=== PATIENT | male | born 1955 | race Caucasian/White ===

== ENCOUNTER → 2016-10-15 | Outpatient (CLI) | payer BC ==
[2016-10-15 17:38] LABS: ALT/SGPT 31 U/L (12-78); BLOOD UREA NITROGEN 16 mg/dl (7-18); BUN/CREATININE RATIO 14.6 (10-20); CALCIUM 9.3 mg/dl (8.5-10.1); CARBON DIOXIDE 26 mmol/L (21-32); CHLORIDE 106 mmol/L (98-107); CHOLESTEROL 199 mg/dl (0-200); GLUCOSE 94 mg/dl (70-99); POTASSIUM 3.7 mmol/L (3.5-5.1); SODIUM 141 mmol/L (136-145); TRIGLYCERIDES 114 mg/dl (0-150); VERY LOW DENSITY LIPOPROT CALC 23 mg/dl
[2016-10-15 17:41] LABS: ALB/GLOB RATIO 1.4 (0.9-2); ALKALINE PHOSPHATASE 69 U/L (45-117); AST/SGOT 21 U/L (15-37); CHOLESTEROL/HDL RATIO 5.5; HDL CHOLESTEROL 36 mg/dl; LDL CHOLESTEROL CALCULATED 140 mg/dl
[2016-10-15 17:58] LABS: RATIO 5.6 mcg/mg (0-30.0)
[2016-10-16 06:33] LABS: ESTIMATED AVERAGE GLUCOSE 128 mg/dl; HA1C FLAG Normal (Normal)
== END | disposition home or self-care (01) ==
LOC: C.LAB1850 15:15
PROVIDERS: ATTEND Physician Assistant
DX: E11.9 Type 2 diabetes mellitus without complications (principal); E78.5 Hyperlipidemia, unspecified

== ENCOUNTER → 2017-05-02 | Outpatient (CLI) | payer BC ==
[2017-05-02 12:31] LABS: ALBUMIN 4.1 gm/dl (3.4-5.0); BLOOD UREA NITROGEN 17 mg/dl (7-18); CALCIUM 9.6 mg/dl (8.5-10.1); CARBON DIOXIDE 26 mmol/L (21-32); CHOLESTEROL 221 mg/dl (0-200); CREATININE 0.94 mg/dl (0.60-1.40); GLUCOSE 98 mg/dl (70-99); POTASSIUM 4.2 mmol/L (3.5-5.1); SODIUM 138 mmol/L (136-145)
[2017-05-02 12:41] LABS: ALKALINE PHOSPHATASE 75 U/L (45-117); ALT/SGPT 28 U/L (12-78); AST/SGOT 17 U/L (15-37); LDL CHOLESTEROL CALCULATED 148 mg/dl; TOTAL PROTEIN 7.3 gm/dl (6.4-8.2)
[2017-05-02 12:57] LABS: HEMOGLOBIN A1C 6.1 % (4.5-5.6)
== END | disposition home or self-care (01) ==
LOC: C.LAB1850 10:36
PROVIDERS: ATTEND Physician Assistant
DX: N52.9 Male erectile dysfunction, unspecified (principal); E11.9 Type 2 diabetes mellitus without complications

== ENCOUNTER 2022-10-04 05:36 | Observation (INO) ==
--- NOTE | 2022-09-27 10:58 | Anesthesiology Consultation ---
Date of Service September 27, 2022 Assessment & Plan (1) Encounter for pre-operative examination: - check BSG am DOS. - spinal cord stimulator. - COVID screening: Per booking prizer on 09/27/2022: Travel screen negative, no known COVID-19 positive contacts or current COVID-19 related symptoms in past 2 weeks. To surgeon's discretion if preop COVID testing is needed. Chart Review Chart Review: Acceptable Risk for Surgery and Patient NOT seen in Pre Admission Testing History Surgery Operation Date: 10/04/22 07:15 Proposed Procedures p TURP (Transurethral Resection Prostate) - Bola Stock MD Height/Weight Height: 5 ft 9 in Weight: 95.254 kg Allergies Allergy/AdvReac Type Severity Reaction Status Date / Time cephalexin [From Keflex] Allergy Unknown Hives Verified 09/27/22 10:13 tetracycline Allergy Unknown HIVES Verified 09/27/22 10:13 lactose AdvReac Unknown DIARRHEA Verified 09/27/22 10:13 Medications Home Medications Medication Instructions Recorded Confirmed Last Taken sildenafil (pulm.hypertension) 20 40 mg PO UD PRN sexual activity 02/20/22 09/27/22 2 Months Ago mg tablet ~06/30/22 atorvastatin 40 mg tablet 40 mg PO HS #90 tabs 06/25/22 09/27/22 08/27/22 semaglutide 1 mg/dose (2 mg/1.5 1 mg subcut WK 08/30/22 09/27/22 Unknown mL) subcutaneous pen injector tamsulosin 0.4 mg capsule (Flomax) 0.4 mg PO QPM #30 caps 09/24/22 09/27/22 Unknown nitrofurantoin 100 mg PO BID 10 days #20 caps 09/26/22 09/27/22 Unknown monohydrate/macrocrystals 100 mg capsule (Macrobid) esomeprazole magnesium 20 mg 20 mg PO Q2D 09/27/22 09/27/22 Unknown capsule,delayed release (Nexium) Past Medical History Medical History (Updated 09/27/22 @ 10:57 by Mariely Garza PA-C) Degenerative disc disease Diabetes mellitus, type 2 NIDDM Erectile dysfunction History of blood transfusion 2005 Hyperlipidemia Hypertension IN PAST, LOST WEIGHT, NO LONGER ISSUE Kidney stones HX > passed on own Lactose intolerance 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 placed 2014 at [facility] for chronic neck pain. battery replaced 2020. pt reports he turns off the day of surgery Past Family History Family History Father Family history of diabetes mellitus Other No family history of adverse response to anesthesia Denies family history of Ovarian cancer Prostate cancer Myocardial infarction Breast cancer Colorectal cancer Past Surgical History Surgical History Fusion of spine 5 CERVICAL FUSION ([facility]) -- ROM limited History of Achilles tendon repair right open debridement 02/18/18 History of appendectomy History of arthroscopy RT KNEE RT SHOULDER History of cardiac cath 2009 (NO STENTS "NORMAL CATH REPORT") History of carpal tunnel surgery of left wrist History of carpal tunnel surgery of right wrist History of colonoscopy History of endoscopic sinus surgery History of laminectomy LUMBAR History of surgery SPINAL CORD STIMULATOR (LOCATED ON RT UPPER CHEST) PT CAN TURN OFF DEVICE (D4P) PT WILL BRING REMOTE DOS S/P insertion of spinal cord stimulator + battery change and also lead changes. S/P left inguinal hernia repair Left Open Inguinal Hernia Repair with Mesh Dr. Baptiste 03/10/2020 Status post trigger finger release right hand 02/18/18 Status post trigger finger release left little finger Status post wrist surgery RT Social History Smoking Status: Current some day smoker tobacco type: cigars Smoking cigarettes per day: OCC CIGAR/ADVISED NPO Do You Dip or Chew Tobacco: No Hx Alcohol Use: Yes Alcohol type: wine and hard liquor alcohol intake frequency: holidays/special occasions only Hx Substance Use: No substance use type: does not use Lab Results Anesthesia Preop Results Results Anesthesia Widget: WBC 7.70 K/ul (4.8-10.8) 09/25/22 Hgb 14.7 g/dl (14.0-18.0) 09/25/22 Hct 43.9 % (42.0-52.0) 09/25/22 Plt 266 K/uL (130-400) 09/25/22 Na 138 mmol/L (136-145) 09/25/22 K 3.9 mmol/L (3.5-5.1) 09/25/22 Cl 105 mmol/L (98-107) 09/25/22 CO2 26 mmol/L (21-32) 09/25/22 BUN 24 mg/dl (6-23) H 09/25/22 Creat 0.98 mg/dl (0.6-1.4) 09/25/22 Glucose Level 128 mg/dl (70-99(Fasting)) H 09/25/22 Urine Color Dark Yellow 08/30/22 Urine Appearance Slightly Cloudy 09/24/22 Urine pH 6.0 (4.5-7.5) 08/30/22 Urine Specific [place] 1.028 (1.000-1.030) 08/30/22 Urine Protein Trace (Negative) H 08/30/22 Urine Glucose (UA) Negative (Negative) 08/30/22 Urine Ketones Trace (Negative) H 08/30/22 Urine Blood Trace (Negative) H 08/30/22 Urine Nitrite Negative (Negative) 08/30/22 Urine Bilirubin Negative (Negative) 08/30/22 Urine Urobilinogen Positive (Negative) H 08/30/22 Urine Leukocyte Esterase 3+ (Negative) H 08/30/22 Urine WBC (Auto) >30 /hpf (0-5) H 08/30/22 Urine RBC (Auto) 0-4 /hpf (0-4) 08/30/22 Urine Hyaline Casts (Auto) 1-5 /lpf (0-5) 08/30/22 Urine Epithelial Cells (Auto) 0-5 /lpf (0-5) 08/30/22 Urine Bacteria (Auto) Negative (Negative) 08/30/22 Testing Electrocardiogram Date: 09/25/22 NSR with frequent consecutive PACs, rate 88 bpm Low voltage QRS Chest X-Ray Date: 09/25/22 No active disease in the chest Other Testing Abdomen pelvis CT 08/30/22 1. No urinary calculi or hydronephrosis. 2. Enlarged prostate with a few hypodense foci within the prostate, as described above. These measure up to 2.4 x 1 cm. These are nonspecific and could represent a heterogeneous prostate gland. However, phlegmon or small developing prostatic abscesses could appear similar. No drainable prostatic fluid collection at this time. 3. No bowel obstruction. No bowel wall thickening.
[~2022-10-04 05:36] MED LIST: PIPERACILLIN IV ONE; TAZOBACTAM IV ONE
[2022-10-04] MEDS ORDERED: LR 15ML/HR IV SCH (06:00)
[2022-10-04] MEDS ORDERED: TAZOBACTAM IV ONE (06:45)
[2022-10-04] MEDS ORDERED: Nursing to Pharmacy Communication SCH (06:45)
[2022-10-04] MEDS ORDERED: PIPERACILLIN IV ONE (06:45)
[2022-10-04] MEDS ORDERED: fentaNYL citrate PF 100 MCG/2 ML VIAL IV PRN (07:03)
[2022-10-04] MEDS ORDERED: ePHEDrine sulfate 50 MG/ML AMP IV PRN (07:03)
[2022-10-04] MEDS ORDERED: PROMETHAZINE HCL 12.5 MG in SODIUM CHLORIDE 0.9% 50 ML IV PRN (07:03)
[2022-10-04] MEDS ORDERED: ATROPINE SULFATE 0.1 MG/ML 10ML SYR IV PRN (07:03)
[2022-10-04] MEDS ORDERED: HYDROmorphone INJ 2 MG/ML SYR/VIAL IV PRN (07:03)
[2022-10-04] MEDS ORDERED: ONDANSETRON INJ 2 MG/ML 2 ML VIAL IV PRN (07:03)
[2022-10-04] MEDS ORDERED: PROPOFOL IV EMULSION 10 MG/ML 20 ML VIAL IV ONE (07:06)
[2022-10-04] MEDS ORDERED: DEXAMETHASONE SOD INJ 4 MG/ML VIAL ONE (07:06)
[2022-10-04] MEDS ORDERED: fentaNYL citrate PF 100 MCG/2 ML VIAL ONE (07:06)
[2022-10-04] MEDS ORDERED: LIDOCAINE 2% 2 ML VIAL/AMP(20MG/ML) INFIL ONE (07:07)
[2022-10-04] MEDS ORDERED: ONDANSETRON INJ 2 MG/ML 2 ML VIAL ONE (07:07)
--- NOTE | 2022-10-04 07:16 | History & Physical Bridge Note ---
Date of Service October 04, 2022 History & Physical Bridge Note I have examined the patient, reviewed the History & Physical and in the interval since the performance of the History & Physical I have noted the following changes of clinical significance: no changes noted
[2022-10-04] MEDS ORDERED: ePHEDrine sulfate 50 MG/ML SYR ONE (08:24)
--- NOTE | 2022-10-04 08:32 | Operative Report ---
PG Post Operative Report Pre & Post Diagnosis Operation Date: 10/04/22 07:15 Pre-Op Diagnosis: Urinary Tract Infection, Acute Prostatitis Post-Op Diagnosis: Urinary Tract Infection, Acute Prostatitis I identified the patient and participated in the time-out.: Yes Procedure Operation Date: 10/04/22 07:15 Actual Procedures p TURP (Transurethral Resection of the Prostate)(Not Applicable) - Bola Stock MD Surgeon Bola Stock MD Shirt Turner none Estimated Blood Loss 5 Findings Consistent with Post-Op Diagnosis Specimens Prostate chips Description of Procedure The patient was identified in the preoperative holding area, appropriate informed consents were reviewed and completed and the patient was transferred to the operative suite. Upon arrival, appropriate antibiotics and anesthesia were administered and the patient was placed in dorsal lithotomy position and prepped and draped in sterile fashion. Umbilicus to pass 26 Romanian resectoscope with 30 degree lens and visual nickel operator peer inspection revealed a healthy-appearing urethra and a moderately enlarged prostate with a high bladder neck and lateral lobe obstruction. The bladder itself was mildly trabeculated with ureteral orifices identified in orthotopic position. There were no tumors or other abnormalities within the bladder. Following my inspection I began resection of the prostate utilizing a loop electrode. I first incised at 5 and 7:00 and then resected the intervening segment of tissue. I carried this dissection from the bladder neck down to the apex of the prostate with care to ensure preservation of the verumontanum. I then resected the rest of the lateral lobes on the right and the left as well as some anterior/apical tissue. I then returned to the posterior portion of the prostate adjacent to the verumontanum and resected through the next layer of tissue extracting a number of prostatic stones. I opened several pockets of area that contain some normal-appearing seminal fluid but no definitive pus. I felt that the resection was adequate at that time and hemostasis was excellent. All chips were irrigated out of the bladder and passed off the table as a specimen. A 22 Romanian Felder catheter was inserted and the case was concluded. There were no complications. I attest to the content of the Intraoperative Record and any orders documented therein. Any exceptions are noted below.
--- NOTE | 2022-10-04 08:53 | Anesthesiology Progress Note ---
Date of Service October 04, 2022 Anesthesia Post Procedure Vital Signs Vital Signs: Temp Pulse Pulse Resp BP BP Pulse Ox 10/04/22 08:45 64 12 130/79 100 10/04/22 08:37 36.4 C L 65 12 129/92 96 10/04/22 06:03 36.6 C 92 H 20 117/78 98 O2 Del Method O2 Flow Rate 10/04/22 08:45 Oxymask 7 10/04/22 08:37 Oxymask 7 10/04/22 06:03 Room Air Transfer of Care Handoff Completed per policy Notes Mental Status: alert / awake / arousable and participated in evaluation Patient Amnestic to Procedure: Yes Nausea / Vomiting: adequately controlled Pain: adequately controlled Airway Patency, RR, SpO2: stable & adequate BP & HR: stable & adequate Hydration State: stable & adequate Anesthetic Complications: no major complications apparent
[2022-10-04] MEDS ORDERED: PHARMACY GLYCEMIC MGMT CONSULT PRN (09:27)
[2022-10-04] MEDS ORDERED: traMADol HCL 50 MG TABLET PO PRN (09:27)
[2022-10-04] MEDS ORDERED: ACETAMINOPHEN 325 MG TAB PO PRN (09:27)
[2022-10-04] MEDS: ALLERGY Noted to ORDERED Medication SCH ×4 (09:34→23:30)
[2022-10-04] MEDS: LACTATED RINGER'S 1,000 ML IV SCH ×2 (09:36→23:06)
[2022-10-04] MEDS ORDERED: PANTOprazole 40 MG TAB PO SCH (10:00)
--- NOTE | 2022-10-04 12:16 | Pharmacy Report ---
Pharmacy Glycemic Short Note 2 - Date of Service October 04, 2022 - Glycemic Short BSG Results (Last 24 hours): 10/04/22 10/04/22 05:53 08:41 POC Glucose 98 114 H OUTPATIENT ANTIDIABETIC REGIMEN: * Ozempic 1 mg SQ weekly - last dose on 09/28/22 ASSESSMENT: * 67 y/o M admitted for UTI and acute prostatitis, underwent TURP today. He has history of Type 2 diabetes managed at home on only SQ Ozempic weekly. * Patient received IV Dexamethasone 4 mg in OR today. * Fasting BSG = 114 mg/dl. Diet is ordered post op. * Novolog ordered based on stress of 2 to start at lunch today * Since he took his Ozempic dose last Saturday, this is still effective today but would wear off tomorrow. BSGs may trend up at that time. * Pre-lunch BSG = 129 mg/dl * Will hold off on basal insulin for now and re-assess tomorrow. PLAN FOR INPATIENT GLYCEMIC CONTROL: * Hold outpatient diabetes medications * Basal insulin * Hold today * Bolus insulin * NovoLog per scale ACHS or Q6hrs while NPO * Goal Range: Low 110 mg/dL - High 140 mg/dL * Correction Factor: 25 mg/dL/unit * Nutritional / Prandial insulin per carb ratio of 1 unit per 8 grams CHO consumed
[2022-10-04] MEDS: NITROFURANTOIN MONOHYDRATE 100 MG CAP PO SCH ×2 (12:31→20:29)
[2022-10-04] MEDS: INSULIN ASPART PER UNIT CHARGE SC SCH ×3 (12:31→22:04)
[2022-10-04] MEDS ORDERED: ATORVASTATIN 40 MG TAB PO SCH (21:00)
--- NOTE | 2022-10-05 09:02 | Urology Progress Note ---
Date of Service October 05, 2022 Assessment & Plan (1) BPH w urinary obs/LUTS: (2) Acute prostatitis: Plan 67-year-old male patient POD #1 s/p transurethral resection of prostate with Dr. Stock. -Patient progressing clinically as expected. -Afebrile, VSS. -No reported pain. -Continue regular diet. -Continue antibiotics. -Encourage ambulation. -Will stop IV fluids. -Discontinue Felder catheter this am and monitor for void. -Plan to discharge home today if voiding spontaneously without difficulty. -Expected clinical course discussed with patient including discharge instructions. All questions answered. -Will arrange follow-up appointment with our service. Admission and Anticipated Discharge Date Admission Date: October 04, 2022 Subjective Patient examined at bedside this AM. Awake, resting in bed on arrival. No acute distress. No issues overnight. Denies any pain or discomfort. Denies fevers, chills, nausea, vomiting. Felder catheter intact, draining clear yellow urine. Review of Systems Constitutional: as per Subjective / HPI Gastrointestinal: as per Subjective / HPI Genitourinary: + as per Subjective / HPI Physical Exam Constitutional: well developed and well nourished; no acute distress Respiratory: normal respiratory effort; no respiratory distress and no labored breathing Musculoskeletal: Head/Neck/Chest: normocephalic Skin: No visible rashes or lesions to exposed skin areas Neurologic: moves all extremities and awake Psychiatric: A+Ox3, euthymic affect Genitourinary: Felder catheter intact, draining clear yellow urine Results & Data Vital Signs (Past 12 Hours) Vital Signs Temp Pulse Resp BP Pulse Ox O2 Del Method 10/05/22 07:10 36.8 C 73 16 125/74 92 Room Air 10/05/22 03:14 36.6 C 72 16 105/66 96 Room Air 10/04/22 23:08 36.7 C 60 18 106/68 95 Room Air PG Care Time/CCT Total # of Minutes Spent Total Time Spent with Patient: Total time spent is greater than 50% in coordination of care (as documented) at patient's floor/unit and/or counseling patient: Coding Level of Care Code None Diagnoses BPH w urinary obs/LUTS N40.1; N13.8 Acute prostatitis N41.0
[2022-10-05] MEDS: INSULIN ASPART PER UNIT CHARGE SC SCH (09:03)
[2022-10-05] MEDS: NITROFURANTOIN MONOHYDRATE 100 MG CAP PO SCH (09:20)
[2022-10-05] MEDS: ALLERGY Noted to ORDERED Medication SCH (09:38)
--- NOTE | 2022-10-05 11:53 | Discharge Summary ---
Date of Service October 05, 2022 Admission HPI Per Admitting Provider 67 year-old male with BPH who presented for TURP procedure Admission Exam Per Admitting Provider Constitutional well developed, well nourished and comfortable; no acute distress Respiratory normal respiratory effort and able to speak in complete sentences; no respiratory distress and no audible wheezes Skin No visible rashes, lesions, or wounds noted. Color normal. Neurologic awake Psychiatric Orientation: alert, oriented x 3 and cooperative Motor Behavior: steady gait and station Affect: euthymic affect Principal Diagnosis BPH, Acute Prostatitis Discharge Exam Constitutional well developed and well nourished; no acute distress Respiratory normal respiratory effort; no respiratory distress and no labored breathing Gastrointestinal (Abdomen) Inspection/Auscultation: abdomen normal to inspection Musculoskeletal Head/Neck/Chest: normocephalic Neurologic moves all extremities and awake Psychiatric A+Ox3, euthymic affect Genitourinary Urine is clear yellow Discharge Data Allergies Allergy/AdvReac Type Severity Reaction Status Date / Time cephalexin [From Keflex] Allergy Mild Hives Verified 10/04/22 05:58 tetracycline Allergy Mild HIVES Verified 10/04/22 05:58 lactose AdvReac Intermediate DIARRHEA Verified 10/04/22 05:58 Procedures Performed Operation Date: 10/04/22 07:15 Actual Procedures p TURP (Transurethral Resection of the Prostate)(Not Applicable) - Bola Stock MD Hospital Course (1) BPH w urinary obs/LUTS: (2) Acute prostatitis: Plan 67-year-old male admitted s/p TURP with Dr. Stock. Patient tolerated procedure well. No acute issues postoperatively. He remained afebrile and hemodynamically stable. No reported pain. Tolerated diet. Ambulated without issue. Patient passed a voiding trial on postop day #1. He was discharged home in stable condition on postop day #1. Patient discharged with course of anti biotics. Expected clinical course discussed with patient including discharge instructions. All questions answered. Total Time Total Time Spent Total Time Spent (In Minutes): 15 Discharge Plan Discharge Items Patient Disposition: Home - Self-Care Reason For Visit: Urinary Tract Infection, Acute Prostatitis Discharge Diagnosis: UTI, Acute Prostatitis Activity: Per Instructions section Lifting: No more than 25 pounds Non-emergency contact: Surgeon and Urologist Call non-emergency contact if: you have any medication questions, your pain is not controlled, your pain is worsening and you have a fever Follow-up/Referrals: Pro,Rodney Arzate MD [Primary Care Provider] - Diet: Carb Consistent or DM2 Addtl Attending Provider Instructions: Please take all medications as prescribed and keep all follow-ups as scheduled. Please call our office at [phone] with any questions, concerns or need to reschedule appointments for any reason. We are happy to assist you. The urology office will contact you to arrange a follow-up visit. Continue Macrobid twice daily as previously prescribed. Tips for your recovery at home: Dont be alarmed by brownish or reddish blood or clots in your urine. This is a result of the procedure. This may occur off and on for weeks to months after the procedure but should continue to improve. Drink plenty of fluids during the day (enough to keep your urine very light colored). This will help keep a healthy flow of urine. Do not lift >25 lbs until your followup Avoid constipation. Please use a stool softener (Colace) for the first two weeks after your procedure. Be sure to finish the antibiotics as prescribed. When to call [facility] at [phone]: Your urine contains heavy blood clots or you are unable to urinate. You are constantly leaking urine. Fever of 101F or higher, chills, nausea, or vomiting. Your pain is not relieved with medication. Pending Studies at Discharge: Yes (pathology) Stand-Alone Forms: My [employer], Smoking Cessation Medications and DC Order Prescriptions: Continued atorvastatin 40 mg tablet 40 mg PO HS Qty: 90 3RF semaglutide 1 mg/dose (2 mg/1.5 mL) pen injector 1 mg subcut WK sildenafil (pulm.hypertension) 20 mg tablet 40 mg PO UD PRN (Reason: sexual activity) esomeprazole magnesium [Nexium] 20 mg Capsule,Delayed Release(Dr/Ec) 20 mg PO Q2D Discontinued tamsulosin [Flomax] 0.4 mg capsule 0.4 mg PO QPM Qty: 30 0RF Rx Instructions: Take one capsule at bedtime. No Action nitrofurantoin monohyd/m-cryst [Macrobid] 100 mg capsule 100 mg PO BID 7 Days Qty: 14 0RF Rx Instructions: must administer with a meal/food Discharge Orders: Discharge Order (Routine); Ordered 10/05/22 Ordered By: Maureen Langford/Other Patient Handouts: TURP Home Recovery Admission Data Admit Date/Time: 10/04/22 08:30 Attending Provider: Bola Stock Admit Provider: Bola Stock Primary Care Provider: Rodney Li Other Interventions: Discharge Summary Assessment (RN) Last Done: 10/05/22 11:31 Coding Level of Care Code 59213 IN/OBS DISCH 30 MIN/LESS Diagnoses BPH w urinary obs/LUTS N40.1; N13.8 Acute prostatitis N41.0
== END 2022-10-05 12:07 | disposition home or self-care (01) ==
LOC: ASU 05:36 → 3N 05:36

== ENCOUNTER 2024-03-03 12:29 | Observation (INO) ==
--- NOTE | 2024-03-03 13:00 | Emergency Department Note ---
Impression & Plan Dizziness, Syncope, Nausea & vomiting, Pericarditis ED Provider Note CHIEF COMPLAINT: Vertigo HISTORY OF PRESENTING ILLNESS: This 69-year-old male patient presents to the emergency department with his for evaluation of dizziness, vertigo, nausea, vomiting, and decreased appetite for the past 2 days. The patient states that on 03/01/24 he was on the toilet and stood up and felt dizzy and then passed out. He states that he fell forwards, but doesn't think that he hit his head. He felt "drunk" when he came back to and felt dizzy. The patient was able to get himself into bed, but then felt very sick to his stomach and got up and started vomiting for about 15 minutes. The patient states that the dizziness and vertigo has persisted since that time. He doesn't have a headache, but the dizziness and disorientation gets worse when he moves around. He continues with the chest discomfort and SOB from the pericarditis, but states that there is not change from his baseline prior to the symptoms starting on 03/01/24. Denies abdominal pain. Will get nausea with activity, but no vomiting since the initial episode. He feels like the room is spinning with the dizziness. He is not No history of vertigo or dizziness. The patient states that he had open heart surgery in October 2023. He was then seen in November 2023 for pericarditis. The patient denies any fevers or URI symptoms, he just states that he has not been feeling right recently. He states that he feels like he has been "under the weather." He is on his 3rd injection of the Arcalyst and wondering if he is having side effects of the medication. He will start tapering the Colchicine next month. Upon review of the patient's chart, he was last seen by his PCP on 02/20/2024. The patient has a history of prostate cancer and underwent TURP in September 2022. He then underwent a prostatectomy at [facility] in June 2023. The patient was last seen at [facility] in February 2024 with a nondetectable PSA. He also underwent thoracic AAA surgery at the [facility] in October 2023. The patient was placed on colchicine and Arcalyst due to his pericarditis. The patient also had an aortic valve replacement and aortic root and ascending aortic aneurysm repair and single-vessel coronary bypass grafting with SOLITARIO graft to the LAD on 10/16/2023. The patient's last echo without pericardial effusion and his chest x-ray was clear. He had a normal functioning aortic valve prosthesis on the echo with preserved LV function. He had a CTA of the chest with no evidence of PE. REVIEW OF SYSTEMS: See HPI for pertinent positives and pertinent negatives. ALLERGIES: Keflex, Tetracycline, Lactose MEDICATIONS: See below PAST MEDICAL HISTORY: See below PHYSICAL EXAM: VITALS: Vitals are noted on the nurse's note and reviewed by myself. GENERAL: No acute distress, non-diaphoretic. SKIN: Capillary reflex less than 2 seconds. HEAD: No scalp tenderness. No step-offs felt. EARS: Bilateral external auditory canals clear. Bilateral tympanic membranes pearly connolly without erythema or effusion. No hemotympanum. No murdock sign. No mastoid tenderness. EYES: Pupils equal round and reactive to light and accommodation. Conjunctivae without injection, sclerae without icterus. Extraocular movements intact without pain. No nystagmus. NOSE: Patent, turbinates without inflammation or discharge. No sinus tenderness. No septal hematoma or bleeding. FACE: No facial bone tenderness. Full range of motion of the jaw without tenderness. No facial droop. MOUTH: Mucous membranes moist. Uvula midline. Airway patent. Tongue does not deviate. NECK: Supple without nuchal rigidity. Cervical spine is nontender. Full range of motion of the neck without tenderness and normal strength. HEART: Regular rate and rhythm without murmurs gallops or rubs. LUNGS: Clear to auscultation bilaterally without wheezes, rales or rhonchi. No retractions or accessory muscle use. No chest wall tenderness. ABDOMEN: Positive bowel sounds x 4. Normal tympanic percussion. Soft, nontender to palpation. No masses or hepatosplenomegaly. No guarding or rebound tenderness. No focal RLQ or LLQ tenderness. MUSCULOSKELETAL: No tenderness of the thoracic or lumbar spine or paraspinal muscles. Full range of motion of the bilateral upper and lower extremities. Strength 5/5 and equal bilaterally in the upper and lower extremities. Peripheral pulses 2+ and equal in the bilateral upper and lower extremities. Bilateral calves are nontender to palpation. No erythema, edema, warmth, or cording. NEURO: Patient was alert and oriented to person place and time. Normal mental status exam. Normal sensation to light and sharp touch. Negative Romberg and pronator drift. Cerebellar function intact. No focal neurological deficits. DIFFERENTIAL DIAGNOSIS: Differential diagnosis includes benign positional vertigo, dehydration, hypovolemia, anemia, tumor, infection, hypoglycemia, electrolyte abnormalities, cardiac sources, intracerebral event, toxicologic, neurologic, as well as other pathologies. ED COURSE AND MEDICAL DECISION MAKING: HISTORY FROM INDEPENDENT HISTORIAN: Additional history obtained from the patient's MEDICATIONS GIVEN: Meclizine 25 mg p.o. Zofran 4 mg IV. Tylenol 1000 mg IV. There is currently a severe shortage of IV fluids. The patient's condition was assessed and did not meet hospital criteria for IV fluid administration at this time. Therefore, IV fluids were not given. MONITOR: Continuous hay stacker operator: Order was placed for continuous hay stacker operator. Patient was placed on the hay stacker operator and continuous pulse ox. Patient was noted to be in normal sinus rhythm at an initial rate of 70 bpm per my interpretation. EKG: EKG was interpreted by myself as sinus rhythm at 65 bpm with premature atrial contractions. There is now an ectopic atrial rhythm compared to his previous EKG. However, no evidence for acute STEMI. INTERPRETATION OF LABS: I interpreted the labs with full lab results as below in the lab section of this note. Pertinent lab results discussed in the MDM section below. INTERPRETATION OF IMAGING: Imaging studies were interpreted by myself and read by radiology as per the imaging section of this note. Chest x-ray showed no acute cardiopulmonary etiology. CT scan of the head without contrast was negative for acute intracranial abnormality. CTA of the head and neck with IV contrast showed no significant angiographic abnormality, dissection, occlusion, aneurysm, stenosis, or other acute abnormalities. CTA of the chest with IV contrast showed no evidence for PE. He is status postmedian sternotomy and aortic valve replacement with no evidence of thoracic aortic dissection. There is increased lucency within the median sternotomy which may be due to interval healing, although, continued imaging follow-up is recommended to exclude less likely possibility of dehiscence. No consolidation to suggest pneumonia. Mild cardiomegaly with extensive coronary artery calcification. CT scan of the abdomen pelvis with IV contrast showed a few small hypodense foci within the bilateral kidneys which are nonspecific. A small foci of pyelonephritis cannot be excluded. Small renal infarcts are also within the differential although these did not extend to the capsule. Renal protocol CT in 6 months to ensure resolution is recommended. He is status post prostatectomy with no pelvic fluid collections and no hydronephrosis. EXTERNAL RECORDS REVIEWED: I reviewed the patient's outpatient records and last PCP visit note as summarized above. CHRONIC MEDICAL/SOCIAL CONDITIONS AFFECTING CARE: Recent AAA repair and open heart surgery that was complicated by pericarditis. CONSULTATIONS: On-call hospitalist MDM SUMMARY: I examined the patient. The patient states that he was on the toilet on 03/01/2024 and when he stood up he got dizzy and passed out. The patient states that he felt like he was drunk when he woke up, but was able to get himself into bed. He felt very nauseous and went to the bathroom and vomited for 15 minutes straight. The patient felt slightly better, but has continued with dizziness and vertigo since that time. He has had intermittent nausea, but no vomiting. He had a recent cardiothoracic surgery complications as above with pericarditis and has been started on new medications. The patient states that his chest pain and shortness of breath is similar to his symptoms prior to the syncopal episode. An IV lock was placed and labs were drawn. The patient was given meclizine with no improvement of his symptoms. He was also given IV Tylenol and IV Zofran without improvement of his symptoms. There is currently a severe shortage of IV fluids. The patient's condition was assessed and did not meet hospital criteria for IV fluid administration at this time. Therefore, IV fluids were not given. White blood cell count normal at 6.43. Hemoglobin low at 12.8, but improved from previous. Platelet count is normal at 191. Coags were normal. CMP without significant abnormalities. Lipase normal. CRP and ESR are normal. Magnesium normal. TSH normal. Urinalysis without evidence for UTI, dehydration, or blood. Respiratory BioFire was negative. High-sensitivity troponin elevated at 24.6 with repeat high-sensitivity troponin increased to 25.1. EKG was interpreted by myself as sinus rhythm at 65 bpm with premature atrial contractions. There is now an ectopic atrial rhythm compared to his previous EKG. However, no evidence for acute STEMI. No recent change in the patient's pain or symptoms compared to his symptoms from his pericarditis. Chest x-ray showed no acute cardiopulmonary etiology. CT scan of the head without contrast was negative for acute intracranial abnormality. CTA of the head and neck with IV contrast showed no significant angiographic abnormality, dissection, occlusion, aneurysm, stenosis, or other acute abnormalities. CTA of the chest with IV contrast showed no evidence for PE. He is status postmedian sternotomy and aortic valve replacement with no evidence of thoracic aortic dissection. There is increased lucency within the median sternotomy which may be due to interval healing, although, continued imaging follow-up is recommended to exclude less likely possibility of dehiscence. No consolidation to suggest pneumonia. Mild cardiomegaly with extensive coronary artery calcification. CT scan of the abdomen pelvis with IV contrast showed a few small hypodense foci within the bilateral kidneys which are nonspecific. A small foci of pyelonephritis cannot be excluded. Small renal infarcts are also within the differential although these did not extend to the capsule. Renal protocol CT in 6 months to ensure resolution is recommended. He is status post prostatectomy with no pelvic fluid collections and no hydronephrosis. I had a meaningful discussion about this patient with Dr. Dos Santos who agrees with my assessment and the treatment plan. Due to the patient's continued dizziness without known cause as well as elevated troponin with recent cardiac surgery and pericarditis, we feel the patient requires admission for further evaluation and treatment. I spoke with the on-call hospitalist who agreed to admit the patient for further management. Please refer to their dictation for further details. The patient's care was transferred in stable condition. DIAGNOSIS: Dizziness Syncope Nausea vomiting Elevated troponin Recent pericarditis Past Med/Surg History Problem List (Updated 03/03/24 @ 22:31 by Glenna Hilario PA-C) Pericarditis (Acute) Nausea & vomiting (Acute) Syncope (Acute) Dizziness (Acute) Vertigo CAD (coronary artery disease) Afib S/P AVR (aortic valve replacement) and aortoplasty (Acute) Pleuropericarditis (Acute) BPH w urinary obs/LUTS Medicare annual wellness visit, subsequent Colon cancer screening Encounter for pre-operative examination Sebaceous cyst Penile lump Encounter for screening for other viral diseases Pre-op testing Left inguinal hernia GERD (gastroesophageal reflux disease) Benign paroxysmal positional vertigo (Acute) Chronic sinusitis (Acute) Hyperlipidemia (Acute) Hypertension (Acute) Type II diabetes mellitus (Acute) Aortic root dilatation 4.8cm on echo 05/2023 Prostate cancer 2023--had sx only Erectile dysfunction (Acute) Medical History History of blood transfusion 2005 Spinal cord stimulator status located in chest wall. placed 2014 at [facility] for chronic neck pain. battery replaced 2020. pt reports he turns off the day of surgery Neuropathy Nerve damage LEFT SIDE-BEHIND LEFT EAR TO LOWER SHOULDERS Degenerative disc disease Kidney stones HX > passed on own Lactose intolerance Diabetes mellitus, type 2 NIDDM Hyperlipidemia Hypertension IN PAST, LOST WEIGHT, NO LONGER ISSUE Surgical History History of left cataract extraction History of radical prostatectomy 06/18/2023 @ [facility] for prostate cancer S/P insertion of spinal cord stimulator + battery change and also lead changes. History of carpal tunnel surgery of left wrist History of carpal tunnel surgery of right wrist Status post trigger finger release left little finger S/P left inguinal hernia repair Left Open Inguinal Hernia Repair with Mesh Dr. Baptiste 03/10/2020 History of Achilles tendon repair right open debridement 02/18/18 Status post trigger finger release right hand 02/18/18 History of surgery SPINAL CORD STIMULATOR (LOCATED ON RT UPPER CHEST) PT CAN TURN OFF DEVICE ([employer]if[employer]TRON[employer]) PT WILL BRING REMOTE DOS Fusion of spine 5 CERVICAL FUSION ([facility]) -- ROM limited History of arthroscopy RT KNEE RT SHOULDER History of laminectomy LUMBAR Status post wrist surgery RT History of colonoscopy History of appendectomy History of endoscopic sinus surgery History of cardiac cath 2009 (NO STENTS "NORMAL CATH REPORT") Family History Father Family history of diabetes mellitus Other No family history of adverse response to anesthesia Denies family history of Ovarian cancer Prostate cancer Myocardial infarction Breast cancer Colorectal cancer Social History Smoking Status: Never smoker Second Hand Exposure: No; Do You Dip or Chew Tobacco: No; Hx Alcohol Use: No Hx Substance Use: No Preferred Language: Occitan Communication Ability: Effective Visual Impairment: No Limitations Hearing Ability: Normal White Sugar Pan Tank Operator Required: No Beliefs That Will Affect Care: None marital status: Current Living Situation: Spouse current occupational status: employed current occupation: Retired Other Information That Helps Us Care for You: No Feels Safe at Home: Yes Safety Concerns: Feels Safe At This Time Childhood Exposure to Second-Hand Smoke: No Dental Care, Regularly: Yes Physical Activity Frequency: 3-4 Times per Week Seatbelt Use: always Sunscreen Use: Yes Assistive Devices: Glasses and Hearing Aid - Bilateral Allergies Allergies Allergy/AdvReac Type Severity Reaction Status Date / Time cephalexin [From Keflex] Allergy Mild Hives Verified 02/20/24 16:56 tetracycline Allergy Mild HIVES Verified 02/20/24 16:56 lactose AdvReac Intermediate DIARRHEA Verified 02/20/24 16:56 Home Meds Home Medications Medication Instructions Recorded Confirmed sildenafil (pulm.hypertension) 20 40 mg PO UD PRN sexual activity 02/20/22 03/03/24 mg tablet aspirin 81 mg tablet,delayed 81 mg PO QAM 11/07/23 03/03/24 release losartan 25 mg tablet 25 mg PO UD 11/20/23 03/03/24 metoprolol succinate 25 mg 25 mg PO BID 12/12/23 03/03/24 tablet,extended release 24 hr omeprazole 40 mg capsule,delayed 40 mg PO DAILY 02/20/24 03/03/24 release rilonacept 220 mg subcutaneous 220 mg subcut Q7D 02/20/24 03/03/24 solution (Arcalyst) Previous Rx's Medication Instructions Recorded tirzepatide 12.5 mg/0.5 mL 12.5 mg (0.5 mL) subcut .Weekly #6 07/29/23 subcutaneous pen injector mL colchicine 0.6 mg tablet 0.6 mg PO BID pericarditis #180 12/20/23 tabs atorvastatin 80 mg tablet 80 mg PO DAILY #90 tabs 12/25/23 amoxicillin 500 mg capsule 2,000 mg (4 x 500 mg) PO ONCE 01/06/24 Valve prophylaxis #4 caps tramadol 50 mg tablet 50 mg PO Q8H PRN pain #60 tabs 01/21/24 Results & Data (ED) Vital Signs Vital Signs - 24 hr 03/03/24 12:34 03/03/24 13:12 03/03/24 13:16 Temperature 36.9 C Temperature Source Temporal Artery Scan Pulse Rate 65 63 Pulse Rate from SpO2 Sensor Respiratory Rate 16 Respiratory Effort / Characteristics Non-Labored Respiratory Depth Normal Blood Pressure 141/89 H Blood Pressure Mean 106 Pulse Oximetry 99 98 Oxygen Delivery Method Room Air Room Air Sepsis Recent Fever Within 48 Hours No Sepsis New/Unexplained Change in Mental Status N/A Sepsis Action Taken by Nursing No Action Required 03/03/24 13:32 03/03/24 14:30 03/03/24 16:06 Temperature Temperature Source Pulse Rate 62 60 61 Pulse Rate from SpO2 Sensor 62 61 61 Respiratory Rate 18 14 14 Respiratory Effort / Characteristics Respiratory Depth Blood Pressure 141/81 H 140/75 144/76 H Blood Pressure Mean 101 96 98 Pulse Oximetry 97 99 97 Oxygen Delivery Method Sepsis Recent Fever Within 48 Hours Sepsis New/Unexplained Change in Mental Status Sepsis Action Taken by Nursing 03/03/24 17:00 03/03/24 17:22 Temperature Temperature Source Pulse Rate 62 62 Pulse Rate from SpO2 Sensor 63 Respiratory Rate 24 Respiratory Effort / Characteristics Respiratory Depth Blood Pressure 146/92 H Blood Pressure Mean 112 Pulse Oximetry 99 Oxygen Delivery Method Sepsis Recent Fever Within 48 Hours Sepsis New/Unexplained Change in Mental Status Sepsis Action Taken by Nursing Laboratory Data 03/03/24 13:10 03/03/24 13:10 Lab Results 03/03/24 03/03/24 03/03/24 Range/Units 13:10 15:15 16:14 WBC 6.43 (4.8-10.8) K/ul RBC 4.58 L (4.70-6.10) M/uL Hgb 12.8 L (14.0-18.0) g/dl Hct 38.4 L (42.0-52.0) % MCV 83.8 (80.0-100.0) fL MCH 27.9 (25.0-34.0) pg MCHC 33.3 (32.0-36.0) g/dL RDW Std Deviation 47.2 H (36.4-46.3) fL RDW Coeff of Carina 15.5 H (11.5-14.5) % Plt Count 191 (130-400) K/uL MPV 11.0 (9.4-12.4) fL Immature Gran % (Auto) 0.2 % Neut % (Auto) 61.5 % Lymph % (Auto) 26.4 % [place] % (Auto) 8.2 % Eos % (Auto) 2.6 % Baso % (Auto) 1.1 % Neut # (Auto) 3.95 (1.40-6.50) K/uL Lymph # (Auto) 1.70 (1.20-3.40) K/uL [place] # (Auto) 0.53 (0.11-0.59) K/uL Eos # (Auto) 0.17 (0.00-0.50) K/uL Baso # (Auto) 0.07 (0.00-0.20) K/uL Immature Gran # (Auto) 0.01 (0.01-0.20) K/uL ESR 12 (0-20) mm/hr PT 11.3 (9.0-12.0) Seconds INR 1.0 (0.9-1.1) APTT 27 (21-31) Seconds PTT Ratio 1.0 Sodium 142 (136-145) mmol/L Potassium 3.9 (3.5-5.1) mmol/L Chloride 106 (98-107) mmol/L Carbon Dioxide 28 (21-32) mmol/L Anion Gap 8 (3-11) BUN 15 (6-23) mg/dl Creatinine 0.77 (0.6-1.4) mg/dl Est Cr Clr Drug Dosing 88.8 ml/min eGFR 97.52 BUN/Creatinine Ratio 19.5 (10-20) Glucose 94 (70-99(Fasting)) mg/dl Calcium 9.3 (8.6-10.3) mg/dl Magnesium 1.8 (1.7-2.4) mg/dl Total Bilirubin 0.9 (0.2-1.0) mg/dl AST 28 (13-39) U/L ALT 34 (7-52) U/L Alkaline Phosphatase 83 (34-104) U/L Troponin I High Sens 24.6 H 25.1 H (0-20) pg/ml C-Reactive Protein < 0.50 (0-0.5) mg/dl Total Protein 6.7 (6.0-8.3) gm/dl Albumin 4.1 (3.4-5.0) gm/dl Globulin 2.6 (2.5-4.0) gm/dl Albumin/Globulin Ratio 1.6 (0.9-2) Lipase 20 (11-82) U/L TSH 1.673 (0.300-4.500) uIu/ml Urine Color Yellow Urine Appearance Clear (Clear) Urine pH 6.5 (4.5-7.5) Ur Specific [place] > 1.045 H (1.000-1.030) Urine Protein Negative (Negative) Urine Glucose (UA) Negative (Negative) Urine Ketones Negative (Negative) Urine Blood Negative (Negative) Urine Nitrite Negative (Negative) Urine Bilirubin Negative (Negative) Urine Urobilinogen Positive H (Negative) Ur Leukocyte Esterase Negative (Negative) Adenovirus (PCR) Not Detected (NotDetected) B. pertussis DNA (PCR) Not Detected (NotDetected) B.parapertussis DNA PCR Not Detected (NotDetected) C. pneumoniae DNA (PCR) Not Detected (NotDetected) Coronavirus OC43 (PCR) Not Detected (NotDetected) Coronavirus HKU1 (PCR) Not Detected (NotDetected) Coronavirus 229E (PCR) Not Detected (NotDetected) SARS-CoV-2 (PCR) Not Detected (NotDetected) Coronavirus NL63 (PCR) Not Detected (NotDetected) Human Metapneumovir PCR Not Detected (NotDetected) Influenza Type A (PCR) Not Detected (NotDetected) Influenza Type B (PCR) Not Detected (NotDetected) M. pneumoniae (PCR) Not Detected (NotDetected) Parainfluenza 1 (PCR) Not Detected (NotDetected) Parainfluenza 2 (PCR) Not Detected (NotDetected) Parainfluenza 3 (PCR) Not Detected (NotDetected) Parainfluenza 4 (PCR) Not Detected (NotDetected) RSV (PCR) Not Detected (NotDetected) Entero/Rhino (PCR) Not Detected (NotDetected) Administered Medications Colchicine (Colchicine 0.6 Mg Tab) 0.6 mg PO BID ANJU Stop: 04/02/24 20:59 Last Admin: 03/03/24 20:43 Dose: 0.6 mg Documented By: NICOLE Enoxaparin Sodium (Enoxaparin Inj 40 Mg/0.4 Ml Syr) 40 mg SQ Q24H ANJU Stop: 04/02/24 19:59 Last Admin: 03/03/24 20:43 Dose: 40 mg Documented By: NICOLE Losartan Potassium (Losartan Potassium 25 Mg Tab) 25 mg PO QAM ANJU Stop: 04/02/24 19:50 Last Admin: 03/03/24 20:43 Dose: 25 mg Documented By: NICOLE Metoprolol Succinate (Metoprolol Succ 25mg Ext Rel Tab) 25 mg PO BID ANJU Stop: 04/02/24 20:59 Last Admin: 03/03/24 20:43 Dose: 25 mg Documented By: NICOLE Discontinued Medications Acetaminophen (Ofirmev) 1,000 mg in 100 mls @ 400 mls/hr IV NOW STA Stop: 03/03/24 15:36 Last Infusion: 03/03/24 16:58 Dose: Infused Documented By: Admin: 03/03/24 15:47 Dose: 400 mls/hr Documented By: ANIA Ioversol (Optiray 320 125ml) 119 ml IV ONCE ONE Stop: 03/03/24 15:24 Last Admin: 03/03/24 15:24 Dose: 119 ml Documented By: NGUYEN Meclizine HCl (Meclizine Hcl 25 Mg Tab) 25 mg PO NOW STA Stop: 03/03/24 13:13 Last Admin: 03/03/24 13:24 Dose: 25 mg Documented By: MAU Ondansetron HCl (Ondansetron Inj 2 Mg/Ml 2 Ml Vial) 4 mg IV NOW STA Stop: 03/03/24 15:23 Last Admin: 03/03/24 15:47 Dose: 4 mg Documented By: ANIA Imaging Data Radiologist's Impression: Abdomen/Pelvis CT 03/03/24 13:12 CT OF THE ABDOMEN AND PELVIS WITH CONTRAST CLINICAL HISTORY: syncope, nausea, chest pain, recent AAA surgery COMPARISON STUDY: Pelvis CT September 19, 2022. CT of the abdomen and pelvis August 30, 2022. TECHNIQUE: Following IV administration of 119 mL of Optiray, axial images of the abdomen and pelvis were obtained from the lung bases to the proximal femurs. Images were reviewed in the axial, sagittal, and coronal planes. IV contrast was administered without complication. Automated exposure control was utilized for the study. A dose lowering technique was utilized adhering to the principles of ALARA. FINDINGS: No pneumatosis, free air or portal venous gas is present. Liver, spleen, adrenal glands and pancreas are unremarkable. There is no biliary or pancreatic ductal dilatation. A 4.7 cm water attenuation left renal lesion represents a cyst. A hypodense 1.7 cm focus within the midpole the right kidney on image 179 of 393 is new since prior exam. This is indeterminate. Note is also made of a 1.5 cm hypodense focus within the midpole of the left kidney There is no hydronephrosis. The prostate is surgically absent. There is no lymphadenopathy. There are no fluid collections. There is no evidence for a bowel obstruction. No acute fractures within the lumbar spine, pelvis or hips are identified. IMPRESSION: 1. No bowel obstruction. No bowel wall thickening. 2. A few small hypodense foci within the bilateral kidneys. These are nonspecific. Small foci of pyelonephritis cannot be excluded. Small renal infarcts are also within the differential although these did not extend to the capsule. Renal protocol CT in 6 months to ensure resolution is recommended. 3. Status post prostatectomy. No pelvic fluid collections. No hydronephrosis. ACT 112: Negative or not required by law. Electronically signed by: Mark Haskins M.D. 03/03/2024 4:06 PM Chest X-Ray 03/03/24 13:12 EXAM: Radiograph of the Chest 1 View INDICATION: Chest pain. TECHNIQUE: Frontal view of the chest. COMPARISON: 01/27/2024 FINDINGS: Lungs and pleural spaces: Portions of the right lower lung are obscured. No consolidation or pulmonary edema. No pleural effusion or pneumothorax. Heart: Stable mild cardiomegaly and valve prosthesis. Stable atrial clip. Mediastinum: Normal contour. Bones/joints: No fracture, erosion or dislocation. Soft tissues: No abnormality noted. No radiopaque foreign body noted. Tubes, lines and devices: Battery generator right anterior chest wall. Leads extend into the neck. Appearance stable. Upper abdomen: No abnormality noted. IMPRESSION: No acute cardiopulmonary disease. ACT 112: Negative or not required by law. Electronically signed by Melissa Krishnan 03-03-2024 13:[address] 03/03/24 13:12 EXAM: CT Head Without Intravenous Contrast INDICATION: Syncope. TECHNIQUE: Axial computed tomography images of the head/brain without intravenous contrast. Sagittal and/or coronal reformats are provided. Sagittal and coronal reformatted images were created and reviewed. This CT exam was performed using one or more of the following dose reduction techniques: automated exposure control, adjustment of the mA and/or kV according to patient size, and/or use of iterative reconstruction technique. COMPARISON: No relevant prior studies available. FINDINGS: Limitations: None. Brain and extra-axial spaces: No abnormality noted. No hemorrhage. No significant white matter disease. No edema. No ventriculomegaly. Bones/joints: No acute changes. Soft tissues: No significant abnormality noted. Vasculature: No acute abnormality noted. Sinuses: There is mild chronic bilateral ethmoid and right sphenoid sinus thickening. Bilateral maxillary antrectomy defects patent. Mastoid air cells: No mastoid effusion. Orbits: No significant abnormality noted. IMPRESSION: No acute findings in the head/brain. ACT 112: Negative or not required by law. Electronically signed by Melissa Krishnan 03-03-2024 3:41 PM Head CTA 03/03/24 13:12 EXAM: CT Angiography Head and Neck With Intravenous Contrast INDICATION: Syncope and dizziness. TECHNIQUE: [place]/head and neck CT angiography protocol performed with intravenous contrast. Sagittal and coronal reformatted images were created and reviewed. This CT exam was performed using one or more of the following dose reduction techniques: automated exposure control, adjustment of the mA and/or kV according to patient size, and/or use of iterative reconstruction technique. MIP reconstructed images were created and reviewed. CONTRAST: 119ml of Optiray 320 was administered intravenously. COMPARISON: None. FINDINGS: HEAD: Right anterior cerebral artery: No abnormality noted. No occlusion or significant stenosis. Anterior communicating artery is present. No aneurysm. Right middle cerebral artery: No abnormality noted. No occlusion or significant stenosis. No aneurysm. Right posterior cerebral artery: No abnormality noted. No occlusion or significant stenosis. No aneurysm. Right intracranial internal carotid artery: No abnormality noted. No significant stenosis. No dissection or occlusion. Right intracranial vertebral artery: No abnormality noted. No significant stenosis. No dissection or occlusion. Left anterior cerebral artery: No abnormality noted. No occlusion or significant stenosis. No aneurysm. Left middle cerebral artery: No abnormality noted. No occlusion or significant stenosis. No aneurysm. Left posterior cerebral artery: No abnormality noted. No occlusion or significant stenosis. No aneurysm. Left intracranial internal carotid artery: No abnormality noted. No significant stenosis. No dissection or occlusion. Left intracranial vertebral artery: No abnormality noted. No significant stenosis. No dissection or occlusion. Basilar artery: No abnormality noted. No occlusion or significant stenosis. No aneurysm. Other vasculature: Patent dural venous sinuses. No vascular malformation. Sinuses: There is minimal chronic mucosal thickening in the right sphenoid sinus. NECK: Right common carotid artery: No abnormality noted. No significant stenosis. No dissection or occlusion. Right extracranial internal carotid artery: Minimal mixed plaque at the bulb. No significant stenosis. No dissection or occlusion. Right external carotid artery: No abnormality noted. No occlusion. Right extracranial vertebral artery: No abnormality noted. No significant stenosis. No dissection or occlusion. Left common carotid artery: No abnormality noted. No significant stenosis. No dissection or occlusion. Left extracranial internal carotid artery: N minimal mixed plaque at the bulb noted. No significant stenosis. No dissection or occlusion. Left external carotid artery: No abnormality noted. No occlusion. Left extracranial vertebral artery: No abnormality noted. No significant stenosis. No dissection or occlusion. Lung apices: No significant abnormality noted. HEAD and NECK: Bones/joints: Multilevel posterior cervical fusion with grossly intact hardware. Soft tissues: No abnormality noted. Tubes, lines and devices: Intrathecal catheter extends in the cervical canal with the tip terminating adjacent to the left posterior C1 arch. CAROTID STENOSIS REFERENCE USING NASCET CRITERIA: % ICA stenosis = (1 - narrowest ICA diameter/diameter of distal cervical ICA) x 100. Mild - <50% stenosis. Moderate - 50-69% stenosis. Severe - 70-94% stenosis. Near occlusion - 95-99% stenosis. Occluded - 100% stenosis. IMPRESSION: No significant angiographic abnormality in the neck or brain. ACT 112: Negative or not required by law. Electronically signed by Melissa Krishnan 03-03-2024 3:45 PM Neck CTA 03/03/24 13:12 EXAM: CT Angiography Head and Neck With Intravenous Contrast INDICATION: Syncope and dizziness. TECHNIQUE: [place]/head and neck CT angiography protocol performed with intravenous contrast. Sagittal and coronal reformatted images were created and reviewed. This CT exam was performed using one or more of the following dose reduction techniques: automated exposure control, adjustment of the mA and/or kV according to patient size, and/or use of iterative reconstruction technique. MIP reconstructed images were created and reviewed. CONTRAST: 119ml of Optiray 320 was administered intravenously. COMPARISON: None. FINDINGS: HEAD: Right anterior cerebral artery: No abnormality noted. No occlusion or significant stenosis. Anterior communicating artery is present. No aneurysm. Right middle cerebral artery: No abnormality noted. No occlusion or significant stenosis. No aneurysm. Right posterior cerebral artery: No abnormality noted. No occlusion or significant stenosis. No aneurysm. Right intracranial internal carotid artery: No abnormality noted. No significant stenosis. No dissection or occlusion. Right intracranial vertebral artery: No abnormality noted. No significant stenosis. No dissection or occlusion. Left anterior cerebral artery: No abnormality noted. No occlusion or significant stenosis. No aneurysm. Left middle cerebral artery: No abnormality noted. No occlusion or significant stenosis. No aneurysm. Left posterior cerebral artery: No abnormality noted. No occlusion or significant stenosis. No aneurysm. Left intracranial internal carotid artery: No abnormality noted. No significant stenosis. No dissection or occlusion. Left intracranial vertebral artery: No abnormality noted. No significant stenosis. No dissection or occlusion. Basilar artery: No abnormality noted. No occlusion or significant stenosis. No aneurysm. Other vasculature: Patent dural venous sinuses. No vascular malformation. Sinuses: There is minimal chronic mucosal thickening in the right sphenoid sinus. NECK: Right common carotid artery: No abnormality noted. No significant stenosis. No dissection or occlusion. Right extracranial internal carotid artery: Minimal mixed plaque at the bulb. No significant stenosis. No dissection or occlusion. Right external carotid artery: No abnormality noted. No occlusion. Right extracranial vertebral artery: No abnormality noted. No significant stenosis. No dissection or occlusion. Left common carotid artery: No abnormality noted. No significant stenosis. No dissection or occlusion. Left extracranial internal carotid artery: N minimal mixed plaque at the bulb noted. No significant stenosis. No dissection or occlusion. Left external carotid artery: No abnormality noted. No occlusion. Left extracranial vertebral artery: No abnormality noted. No significant stenosis. No dissection or occlusion. Lung apices: No significant abnormality noted. HEAD and NECK: Bones/joints: Multilevel posterior cervical fusion with grossly intact hardware. Soft tissues: No abnormality noted. Tubes, lines and devices: Intrathecal catheter extends in the cervical canal with the tip terminating adjacent to the left posterior C1 arch. CAROTID STENOSIS REFERENCE USING NASCET CRITERIA: % ICA stenosis = (1 - narrowest ICA diameter/diameter of distal cervical ICA) x 100. Mild - <50% stenosis. Moderate - 50-69% stenosis. Severe - 70-94% stenosis. Near occlusion - 95-99% stenosis. Occluded - 100% stenosis. IMPRESSION: No significant angiographic abnormality in the neck or brain. ACT 112: Negative or not required by law. Electronically signed by Melissa Krishnan 03-03-2024 3:45 PM Chest CTA 03/03/24 13:13 CT ANGIOGRAPHY OF THE CHEST, PULMONARY EMBOLUS PROTOCOL CLINICAL HISTORY: Chest Pain, eval for PE COMPARISON STUDY: Chest CT November 23, 2023. Chest radiograph performed earlier today. TECHNIQUE: Following IV administration of 119 mL of Optiray, helical axial images of the chest were obtained utilizing the pulmonary embolus protocol. Maximal intensity projections and sagittal and coronal reformats were viewed on an independent 3D workstation. IV contrast was administered without complication. Automated exposure control was utilized for the study. A dose lowering technique was utilized adhering to the principles of ALARA. CT DOSE: 3170.61 mGy.cm FINDINGS: Status post median sternotomy. Lucency within the sternotomy site is slightly more conspicuous than on CT of November 23, 2023. No associated fluid collections are present. There is no evidence for thoracic aortic dissection. Aortic valve replacement is in place. The heart is mildly enlarged. There is no pericardial effusion. There is extensive coronary artery calcification. No pulmonary emboli are identified. There is no pneumothorax or pleural effusion. There is no consolidation to suggest pneumonia. There are no suspicious pulmonary nodules. No enlarged axillary, mediastinal or hilar lymph nodes are present. IMPRESSION: 1. No pulmonary emboli identified. 2. Status post median sternotomy and aortic valve replacement. No thoracic aortic dissection. 3. Increased lucency within the median sternotomy. This may be due to interval healing although continued imaging follow-up is recommended to exclude less likely possibility of dehiscence. 4. No consolidation to suggest pneumonia. 5. Mild cardiomegaly. Extensive coronary artery calcification. ACT 112: Negative or not required by law. Electronically signed by: Mark Haskins M.D. 03/03/2024 4:00 PM Discharge Plan Visit Data Chief Complaint: Vertigo Stated Complaint: VERTIGO, VOMIT, SYNCOPE, ED Provider: Mario Dos Santos ED Midlevel Provider: Glenna Hilario Discharge Problem: Dizziness, Syncope, Nausea & vomiting, Pericarditis Patient Disposition: Admitted As Inpatient Condition: Good Discharge Instructions Interventions: ED Discharge Assessment Last Done: 03/03/24 18:34 Discharge Problem: Syncope Qualifiers: Encounter type: initial encounter Nausea & vomiting Qualifiers: Vomiting type: unspecified Qualified Code(s): R11.2 - Nausea with vomiting, unspecified Pericarditis Qualifiers: Pericarditis type: unspecified type
[2024-03-03] MEDS: MECLIZINE HCL 25 MG TAB PO STA (13:24)
[2024-03-03 13:36] LABS: Basophils # (auto) 0.07 K/uL (0.00-0.20); Basophils % (auto) 1.1 %; Eosinophils # (auto) 0.17 K/uL (0.00-0.50); Eosinophils % (auto) 2.6 %; Hematocrit (blood only) 38.4 % (42.0-52.0); Hemoglobin 12.8 g/dl (14.0-18.0); Immature Granulocytes # (auto) 0.01 K/uL (0.01-0.20); Immature Granulocytes % (auto) 0.2 %; Lymphocytes % (auto) 26.4 %; Mean Corpuscular Hemoglobin 27.9 pg (25.0-34.0); Mean Corpuscular Hgb Conc 33.3 g/dL (32.0-36.0); Mean Corpuscular Volume 83.8 fL (80.0-100.0); Monocytes # (auto) 0.53 K/uL (0.11-0.59); Monocytes % (auto) 8.2 %; Neutrophils # (auto) 3.95 K/uL (1.40-6.50); Neutrophils % (auto) 61.5 %; Platelet Count 191 K/uL (130-400); RDW Coefficient of Variation 15.5 % (11.5-14.5); RDW Standard Deviation 47.2 fL (36.4-46.3); Red Blood Count 4.58 M/uL (4.70-6.10); White Blood Count 6.43 K/ul (4.8-10.8)
--- NOTE | 2024-03-03 13:41 | XRay Report ---
EXAM: Radiograph of the Chest 1 View INDICATION: Chest pain. TECHNIQUE: Frontal view of the chest. COMPARISON: 01/27/2024 FINDINGS: Lungs and pleural spaces: Portions of the right lower lung are obscured. No consolidation or pulmonary edema. No pleural effusion or pneumothorax. Heart: Stable mild cardiomegaly and valve prosthesis. Stable atrial clip. Mediastinum: Normal contour. Bones/joints: No fracture, erosion or dislocation. Soft tissues: No abnormality noted. No radiopaque foreign body noted. Tubes, lines and devices: Battery generator right anterior chest wall. Leads extend into the neck. Appearance stable. Upper abdomen: No abnormality noted. IMPRESSION: No acute cardiopulmonary disease. ACT 112: Negative or not required by law. Electronically signed by Melissa Krishnan 03-03-2024 13:40 PM
[2024-03-03 14:03] LABS: Partial Thromboplastin Time 27 Seconds (21-31); Prothrombin Time 11.3 Seconds (9.0-12.0)
[2024-03-03 14:05] LABS: Alanine Aminotransferase 34 U/L (7-52); Albumin Globulin Ratio 1.6 (0.9-2); Albumin Level 4.1 gm/dl (3.4-5.0); Alkaline Phosphatase 83 U/L (34-104); Anion Gap 8 (3-11); Aspartate Aminotransferase 28 U/L (13-39); BUN Creatinine Ratio 19.5 (10-20); Bilirubin,Total 0.9 mg/dl (0.2-1.0); Blood Urea Nitrogen 15 mg/dl (6-23); C Reactive Protein < 0.50 mg/dl (0-0.5); Calcium 9.3 mg/dl (8.6-10.3); Carbon Dioxide 28 mmol/L (21-32); Chloride 106 mmol/L (98-107); Creatinine Clr Calc Pharmacy 88.8 ml/min; Globulin 2.6 gm/dl (2.5-4.0); Glucose 94 mg/dl (70-99(Fasting)); Lipase 20 U/L (11-82); Magnesium 1.8 mg/dl (1.7-2.4); Potassium 3.9 mmol/L (3.5-5.1); Sodium 142 mmol/L (136-145); Total Protein 6.7 gm/dl (6.0-8.3)
[2024-03-03 14:10] LABS: Troponin I High Sensitivity 24.6 pg/ml (0-20)
[2024-03-03 14:19] LABS: Thyroid Stimulating Hormone 1.673 uIu/ml (0.300-4.500)
[2024-03-03 14:31] LABS: Adenovirus PCR Not Detected (NotDetected); Bordetella parapertussis PCR Not Detected (NotDetected); Bordetella pertussis PCR Not Detected (NotDetected); Chlamydia pneumoniae PCR Not Detected (NotDetected); Coronavirus 229E PCR Not Detected (NotDetected); Coronavirus CoV-2 (COVID19)PCR Not Detected (NotDetected); Coronavirus HKU1 PCR Not Detected (NotDetected); Coronavirus NL63 PCR Not Detected (NotDetected); Coronavirus OC43PCR Not Detected (NotDetected); Human Metapneumovirus PCR Not Detected (NotDetected); Influenza A PCR Not Detected (NotDetected); Influenza B PCR Not Detected (NotDetected); Mycoplasma pneumoniae PCR Not Detected (NotDetected); Parainfluenza Virus 1 PCR Not Detected (NotDetected); Parainfluenza Virus 2 PCR Not Detected (NotDetected); Parainfluenza Virus 3 PCR Not Detected (NotDetected); Parainfluenza Virus 4 PCR Not Detected (NotDetected); Respiratory Syncytial VirusPCR Not Detected (NotDetected); Rhinovirus/Enterovirus PCR Not Detected (NotDetected)
[2024-03-03] MEDS: OPTIRAY 320 125ml IV ONE (15:24)
--- NOTE | 2024-03-03 15:41 | CT Scan Report ---
EXAM: CT Head Without Intravenous Contrast INDICATION: Syncope. TECHNIQUE: Axial computed tomography images of the head/brain without intravenous contrast. Sagittal and/or coronal reformats are provided. Sagittal and coronal reformatted images were created and reviewed. This CT exam was performed using one or more of the following dose reduction techniques: automated exposure control, adjustment of the mA and/or kV according to patient size, and/or use of iterative reconstruction technique. COMPARISON: No relevant prior studies available. FINDINGS: Limitations: None. Brain and extra-axial spaces: No abnormality noted. No hemorrhage. No significant white matter disease. No edema. No ventriculomegaly. Bones/joints: No acute changes. Soft tissues: No significant abnormality noted. Vasculature: No acute abnormality noted. Sinuses: There is mild chronic bilateral ethmoid and right sphenoid sinus thickening. Bilateral maxillary antrectomy defects patent. Mastoid air cells: No mastoid effusion. Orbits: No significant abnormality noted. IMPRESSION: No acute findings in the head/brain. ACT 112: Negative or not required by law. Electronically signed by Melissa Krishnan 03-03-2024 3:41 PM
--- NOTE | 2024-03-03 15:45 | CT Scan Report ---
EXAM: CT Angiography Head and Neck With Intravenous Contrast INDICATION: Syncope and dizziness. TECHNIQUE: [place]/head and neck CT angiography protocol performed with intravenous contrast. Sagittal and coronal reformatted images were created and reviewed. This CT exam was performed using one or more of the following dose reduction techniques: automated exposure control, adjustment of the mA and/or kV according to patient size, and/or use of iterative reconstruction technique. MIP reconstructed images were created and reviewed. CONTRAST: 119ml of Optiray 320 was administered intravenously. COMPARISON: None. FINDINGS: HEAD: Right anterior cerebral artery: No abnormality noted. No occlusion or significant stenosis. Anterior communicating artery is present. No aneurysm. Right middle cerebral artery: No abnormality noted. No occlusion or significant stenosis. No aneurysm. Right posterior cerebral artery: No abnormality noted. No occlusion or significant stenosis. No aneurysm. Right intracranial internal carotid artery: No abnormality noted. No significant stenosis. No dissection or occlusion. Right intracranial vertebral artery: No abnormality noted. No significant stenosis. No dissection or occlusion. Left anterior cerebral artery: No abnormality noted. No occlusion or significant stenosis. No aneurysm. Left middle cerebral artery: No abnormality noted. No occlusion or significant stenosis. No aneurysm. Left posterior cerebral artery: No abnormality noted. No occlusion or significant stenosis. No aneurysm. Left intracranial internal carotid artery: No abnormality noted. No significant stenosis. No dissection or occlusion. Left intracranial vertebral artery: No abnormality noted. No significant stenosis. No dissection or occlusion. Basilar artery: No abnormality noted. No occlusion or significant stenosis. No aneurysm. Other vasculature: Patent dural venous sinuses. No vascular malformation. Sinuses: There is minimal chronic mucosal thickening in the right sphenoid sinus. NECK: Right common carotid artery: No abnormality noted. No significant stenosis. No dissection or occlusion. Right extracranial internal carotid artery: Minimal mixed plaque at the bulb. No significant stenosis. No dissection or occlusion. Right external carotid artery: No abnormality noted. No occlusion. Right extracranial vertebral artery: No abnormality noted. No significant stenosis. No dissection or occlusion. Left common carotid artery: No abnormality noted. No significant stenosis. No dissection or occlusion. Left extracranial internal carotid artery: N minimal mixed plaque at the bulb noted. No significant stenosis. No dissection or occlusion. Left external carotid artery: No abnormality noted. No occlusion. Left extracranial vertebral artery: No abnormality noted. No significant stenosis. No dissection or occlusion. Lung apices: No significant abnormality noted. HEAD and NECK: Bones/joints: Multilevel posterior cervical fusion with grossly intact hardware. Soft tissues: No abnormality noted. Tubes, lines and devices: Intrathecal catheter extends in the cervical canal with the tip terminating adjacent to the left posterior C1 arch. CAROTID STENOSIS REFERENCE USING NASCET CRITERIA: % ICA stenosis = (1 - narrowest ICA diameter/diameter of distal cervical ICA) x 100. Mild - <50% stenosis. Moderate - 50-69% stenosis. Severe - 70-94% stenosis. Near occlusion - 95-99% stenosis. Occluded - 100% stenosis. IMPRESSION: No significant angiographic abnormality in the neck or brain. ACT 112: Negative or not required by law. Electronically signed by Melissa Krishnan 03-03-2024 3:45 PM
[2024-03-03] MEDS: ONDANSETRON INJ 2 MG/ML 2 ML VIAL IV STA (15:47)
[2024-03-03] MEDS: ACETAMINOPHEN 1,000 MG/100 ML VIAL IV STA (15:47)
--- NOTE | 2024-03-03 16:02 | CT Scan Report ---
CT ANGIOGRAPHY OF THE CHEST, PULMONARY EMBOLUS PROTOCOL CLINICAL HISTORY: Chest Pain, eval for PE COMPARISON STUDY: Chest CT November 23, 2023. Chest radiograph performed earlier today. TECHNIQUE: Following IV administration of 119 mL of Optiray, helical axial images of the chest were o btained utilizing the pulmonary embolus protocol. Maximal intensity projections and sagittal and cor onal reformats were viewed on an independent 3D workstation. IV contrast was administered without co mplication. Automated exposure control was utilized for the study. A dose lowering technique was ut ilized adhering to the principles of ALARA. CT DOSE: 3170.61 mGy.cm FINDINGS: Status post median sternotomy. Lucency within the sternotomy site is slightly more conspic uous than on CT of November 23, 2023. No associated fluid collections are present. There is no evidence for thoracic aortic dissection. Aortic valve replacement is in place. The heart is mildly enlarged. There is no pericardial effusion. There is extensive coronary artery calcification. No pulmonary embo li are identified. There is no pneumothorax or pleural effusion. There is no consolidation to suggest pneumonia. There are no suspicious pulmonary nodules. No enlarged axillary, mediastinal or hilar lym ph nodes are present. IMPRESSION: 1. No pulmonary emboli identified. 2. Status post median sternotomy and aortic valve replacement. No thoracic aortic dissection. 3. Increased lucency within the median sternotomy. This may be due to interval healing although thierry nued imaging follow-up is recommended to exclude less likely possibility of dehiscence. 4. No consolidation to suggest pneumonia. 5. Mild cardiomegaly. Extensive coronary artery calcification. ACT 112: Negative or not required by law. Electronically signed by: Mark Haskins M.D. 03/03/2024 4:00 PM
--- NOTE | 2024-03-03 16:08 | CT Scan Report ---
CT OF THE ABDOMEN AND PELVIS WITH CONTRAST CLINICAL HISTORY: syncope, nausea, chest pain, recent AAA surgery COMPARISON STUDY: Pelvis CT September 19, 2022. CT of the abdomen and pelvis August 30, 2022. TECHNIQUE: Following IV administration of 119 mL of Optiray, axial images of the abdomen and pelvis w ere obtained from the lung bases to the proximal femurs. Images were reviewed in the axial, sagittal, and coronal planes. IV contrast was administered without complication. Automated exposure control w as utilized for the study. A dose lowering technique was utilized adhering to the principles of KARLA [place]. FINDINGS: No pneumatosis, free air or portal venous gas is present. Liver, spleen, adrenal glands and pancreas are unremarkable. There is no biliary or pancreatic ductal dilatation. A 4.7 cm water atten uation left renal lesion represents a cyst. A hypodense 1.7 cm focus within the midpole the right kid ching on image 179 of 393 is new since prior exam. This is indeterminate. Note is also made of a 1.5 cm hypodense focus within the midpole of the left kidney There is no hydronephrosis. The prostate is dominique rgically absent. There is no lymphadenopathy. There are no fluid collections. There is no evidence fo r a bowel obstruction. No acute fractures within the lumbar spine, pelvis or hips are identified. IMPRESSION: 1. No bowel obstruction. No bowel wall thickening. 2. A few small hypodense foci within the bilateral kidneys. These are nonspecific. Small foci of pyel onephritis cannot be excluded. Small renal infarcts are also within the differential although these d id not extend to the capsule. Renal protocol CT in 6 months to ensure resolution is recommended. 3. Status post prostatectomy. No pelvic fluid collections. No hydronephrosis. ACT 112: Negative or not required by law. Electronically signed by: Mark Haskins M.D. 03/03/2024 4:06 PM
[2024-03-03 16:24] LABS: Appearance Urine Clear (Clear); Bilirubin Urine Negative (Negative); Blood Urine Negative (Negative); Color Urine Yellow; Glucose Urine UA Negative (Negative); Ketones Urine Negative (Negative); Leukocyte Esterase Urine Negative (Negative); Nitrite Urine Negative (Negative); Protein Urine Negative (Negative); Specific Gravity Urine > 1.045 (1.000-1.030); Urobilinogen Urine Positive (Negative); pH Urine 6.5 (4.5-7.5)
--- NOTE | 2024-03-03 17:39 | History & Physical Report ---
Date of Service March 03, 2024 Assessment & Plan (1) Vertigo: Plan: Ongoing x 2 days - Admit observation - CBC and CMP grossly WNL; troponin elevated 24->25, EKG without signs of ischemia, no current symptoms - CXR without acute cardiopulmonary disease - CTAP no obstruction or wall thickening, few hypodense foci within the bilateral kidneys, status post prostatectomy - Head/neck CT without acute findings - Head CTA without angiographic abnormalities in neck or brain - Chest CTA status post median sternotomy and aortic valve replacement, increased lucency within the median sternotomy (interval healing or dehiscence), no pneumonia, mild cardiomegaly, coronary artery calcification - [place]-Hallpike maneuver bilaterally at bedside; positive finding w/ nystagmus when tested on R side - Orthostatic vitals pending - Consulted PT for Mickey maneuver to be completed - No MRI at this time; if symptoms do not improve w/ Mickey maneuver or symptoms worsen, will consider MRI to r/o vertebrobasilar CVA which is low on differential currently (does have spinal cord stimulator in chest) (2) CAD (coronary artery disease): Plan: CAD; s/p AVR - H/o pericarditis, currently being managed outpatient medications - continue as prescribed - Lucency found on imaging; would recommend having [facility] evaluate this to differentiate healing vs dehiscence - CABG SOLITARIO to LAD (10/2023) - Ascending aortic aneurysm repaired at the [facility] - Minimally elevated troponin on admission w/o EKG changes or symptoms; monitor for now (3) Type II diabetes mellitus: Plan: Tirzepatide weekly outpatient - Most recent A1C 11/2023 @ 5.8% - No BSG checks at this time given weekly medication compared to a daily medication - T2DM diet - Adjust regimen if needed Plan Dispo: Admit Diet: DMT2 VTE Prophylaxis: Lovenox Code: Full Admission and Anticipated Discharge Date Admission Date: 03/03/2024 History of Present Illness Chief Complaint: Vertigo Primary Care Provider: Rodney Li MD 69-year-old male presenting for ongoing vertigo since Saturday. ED course: RBC 4.58, H&H 12.8/38.4, RDW 47.2; PT/INR WNL; CMP WNL; troponin 24.6, repeat 25.1; UA without signs of infection; BioFire negative.; CTAP no obstruction or wall thickening, few hypodense foci within the bilateral kidneys, status post prostatectomy; head/neck CT without acute findings; head CTA without angiographic abnormalities in neck or brain; chest CTA status post median sternotomy and aortic valve replacement, increased lucency within the median sternotomy (interval healing or dehiscence), no pneumonia, mild cardiomegaly, coronary artery calcification.; CXR without acute cardiopulmonary disease.; EKG rate around 65, possible ectopic atrial rhythm. Patient is a 69-year-old male PMHx BPPV, CAD, A-fib, pleuropericarditis, GERD, T2DM, and HTN presenting for worsening vertigo since Saturday. Initial episode occurred after using the restroom. States that he had episode of nausea/vomiting with associated vertigo starting on Saturday. States that has gotten to the point where he is unable to move his head at all because it causes severe symptoms. States that he feels as though the room is spinning around him. Notes that the movements really only occur whenever he rolls over in bed or changes his head position. Not having associated headaches or tinnitus. Denies pain, shortness of breath, cough, abdominal pain, D/C, or numbness tingling. States that this is never happened before, however history does note history of BPPV. Please see Dr. Tam's attestation for adjustments/additions to treatment plan. Allergies Allergy/AdvReac Type Severity Reaction Status Date / Time cephalexin [From Keflex] Allergy Mild Hives Verified 02/20/24 16:56 tetracycline Allergy Mild HIVES Verified 02/20/24 16:56 lactose AdvReac Intermediate DIARRHEA Verified 02/20/24 16:56 Home Medications Medication Instructions Recorded Confirmed Type sildenafil (pulm.hypertension) 20 40 mg PO UD PRN sexual activity 02/20/22 03/03/24 History mg tablet tirzepatide 12.5 mg/0.5 mL 12.5 mg (0.5 mL) subcut .Weekly #6 07/29/23 03/03/24 Rx subcutaneous pen injector mL aspirin 81 mg tablet,delayed 81 mg PO QAM 11/07/23 03/03/24 History release losartan 25 mg tablet 25 mg PO UD 11/20/23 03/03/24 History metoprolol succinate 25 mg 25 mg PO BID 12/12/23 03/03/24 History tablet,extended release 24 hr colchicine 0.6 mg tablet 0.6 mg PO BID pericarditis #180 12/20/23 03/03/24 Rx tabs atorvastatin 80 mg tablet 80 mg PO DAILY #90 tabs 12/25/23 03/03/24 Rx amoxicillin 500 mg capsule 2,000 mg (4 x 500 mg) PO ONCE 01/06/24 03/03/24 Rx Valve prophylaxis #4 caps tramadol 50 mg tablet 50 mg PO Q8H PRN pain #60 tabs 01/21/24 03/03/24 Rx omeprazole 40 mg capsule,delayed 40 mg PO DAILY 02/20/24 03/03/24 History release rilonacept 220 mg subcutaneous 220 mg subcut Q7D 02/20/24 03/03/24 History solution (Arcalyst) Past Med/Surg History Problem List (Updated 03/03/24 @ 17:53 by Vaibhav Lange PA-C) Vertigo CAD (coronary artery disease) Afib S/P AVR (aortic valve replacement) and aortoplasty (Acute) Pleuropericarditis (Acute) BPH w urinary obs/LUTS Medicare annual wellness visit, subsequent Colon cancer screening Encounter for pre-operative examination Sebaceous cyst Penile lump Encounter for screening for other viral diseases Pre-op testing Left inguinal hernia GERD (gastroesophageal reflux disease) Benign paroxysmal positional vertigo (Acute) Chronic sinusitis (Acute) Hyperlipidemia (Acute) Hypertension (Acute) Type II diabetes mellitus (Acute) Aortic root dilatation 4.8cm on echo 05/2023 Prostate cancer 2023--had sx only Erectile dysfunction (Acute) Medical History History of blood transfusion 2006 Spinal cord stimulator status located in chest wall. placed 2014 at [facility] for chronic neck pain. battery replaced 2020. pt reports he turns off the day of surgery Neuropathy Nerve damage LEFT SIDE-BEHIND LEFT EAR TO LOWER SHOULDERS Degenerative disc disease Kidney stones HX > passed on own Lactose intolerance Diabetes mellitus, type 2 NIDDM Hyperlipidemia Hypertension IN PAST, LOST WEIGHT, NO LONGER ISSUE Surgical History History of left cataract extraction History of radical prostatectomy 06/18/2023 @ [facility] for prostate cancer S/P insertion of spinal cord stimulator + battery change and also lead changes. History of carpal tunnel surgery of left wrist History of carpal tunnel surgery of right wrist Status post trigger finger release left little finger S/P left inguinal hernia repair Left Open Inguinal Hernia Repair with Mesh Dr. Baptiste 03/10/2020 History of Achilles tendon repair right open debridement 02/18/18 Status post trigger finger release right hand 02/18/18 History of surgery SPINAL CORD STIMULATOR (LOCATED ON RT UPPER CHEST) PT CAN TURN OFF DEVICE ([employer]ot[employer]) PT WILL BRING REMOTE DOS Fusion of spine 5 CERVICAL FUSION ([facility]) -- ROM limited History of arthroscopy RT KNEE RT SHOULDER History of laminectomy LUMBAR Status post wrist surgery RT History of colonoscopy History of appendectomy History of endoscopic sinus surgery History of cardiac cath 2009 (NO STENTS "NORMAL CATH REPORT") Family History Father Family history of diabetes mellitus Other No family history of adverse response to anesthesia Denies family history of Ovarian cancer Prostate cancer Myocardial infarction Breast cancer Colorectal cancer Social History Smoking Status: Never smoker Tobacco Type: Cigars Cigarettes Per Day: OCC CIGAR/ADVISED NPO; Second Hand Exposure: No; Do You Dip or Chew Tobacco: No; Hx Alcohol Use: Yes Alcohol type: hard liquor Hx Substance Use: No Preferred Language: Mohawk Communication Ability: Effective Visual Impairment: No Limitations Hearing Ability: Normal Plastic Sheets Supervisor Required: No Beliefs That Will Affect Care: None marital status: Current Living Situation: Spouse current occupational status: employed current occupation: Retired Feels Safe at Home: Yes Childhood Exposure to Second-Hand Smoke: No Dental Care, Regularly: Yes Physical Activity Frequency: 3-4 Times per Week Seatbelt Use: always Sunscreen Use: Yes Assistive Devices: Glasses and Hearing Aid - Bilateral Review of Systems Review of Systems: All systems reviewed & are unremarkable except as noted in Subjective Physical Exam Physical Exam: General: No acute distress Skin: Warm and dry Head: Normocephalic, atraumatic Eyes: PERRL, conjunctivae clear, sclera non-icteric; EOM intact ENT: External ear and ear canal without swelling; nose atraumatic; good dentition, tongue normal appearance; [place]-Hallpike neuro performed at bedside by Dr. Tam- positive results supported by vertical nystagmus when turning head to the right side. Neck: Supple Cardio: RRR, no M/G/R, S1 and S2 normal Resp: No respiratory distress, Lungs CTA in all lobes bilaterally, no wheezes, rales, or rhonchi Abdomen: Soft, symmetric, nontender MSK: No deformities; pulses palpable and equal; no edema. Neuro: Awake, alert; Sensation intact bilaterally Psych: Appropriate mood and affect; good judgement and insight. Patient's is present at the time of visit. Results & Data Results & Data Vital Signs (Past 12 Hours) Vital Signs Temp Pulse Resp BP Pulse Ox O2 Del Method 03/03/24 17:22 62 03/03/24 16:06 61 14 144/76 H 97 03/03/24 14:30 60 14 140/75 99 03/03/24 13:32 62 18 141/81 H 97 03/03/24 13:16 63 03/03/24 13:12 98 Room Air 03/03/24 12:34 36.9 C 65 16 141/89 H 99 Room Air Laboratory Results 03/03/24 03/03/24 03/03/24 16:14 15:15 13:10 WBC 6.43 RBC 4.58 L Hgb 12.8 L Hct 38.4 L MCV 83.8 MCH 27.9 MCHC 33.3 RDW Std Deviation 47.2 H RDW Coeff of Carina 15.5 H Plt Count 191 MPV 11.0 Immature Gran % (Auto) 0.2 Neut % (Auto) 61.5 Lymph % (Auto) 26.4 [place] % (Auto) 8.2 Eos % (Auto) 2.6 Baso % (Auto) 1.1 Neut # (Auto) 3.95 Lymph # (Auto) 1.70 [place] # (Auto) 0.53 Eos # (Auto) 0.17 Baso # (Auto) 0.07 Immature Gran # (Auto) 0.01 ESR 12 PT 11.3 INR 1.0 APTT 27 PTT Ratio 1.0 Sodium 142 Potassium 3.9 Chloride 106 Carbon Dioxide 28 Anion Gap 8 BUN 15 Creatinine 0.77 Est Cr Clr Drug Dosing 88.8 eGFR 97.52 BUN/Creatinine Ratio 19.5 Glucose 94 Calcium 9.3 Magnesium 1.8 Total Bilirubin 0.9 AST 28 ALT 34 Alkaline Phosphatase 83 Troponin I High Sens 25.1 H 24.6 H C-Reactive Protein < 0.50 Total Protein 6.7 Albumin 4.1 Globulin 2.6 Albumin/Globulin Ratio 1.6 Lipase 20 TSH 1.673 Urine Color Yellow Urine Appearance Clear Urine pH 6.5 Ur Specific [place] > 1.045 H Urine Protein Negative Urine Glucose (UA) Negative Urine Ketones Negative Urine Blood Negative Urine Nitrite Negative Urine Bilirubin Negative Urine Urobilinogen Positive H Ur Leukocyte Esterase Negative Adenovirus (PCR) Not Detected B. pertussis DNA (PCR) Not Detected B.parapertussis DNA PCR Not Detected C. pneumoniae DNA (PCR) Not Detected Coronavirus OC43 (PCR) Not Detected Coronavirus HKU1 (PCR) Not Detected Coronavirus 229E (PCR) Not Detected SARS-CoV-2 (PCR) Not Detected Coronavirus NL63 (PCR) Not Detected Human Metapneumovir PCR Not Detected Influenza Type A (PCR) Not Detected Influenza Type B (PCR) Not Detected M. pneumoniae (PCR) Not Detected Parainfluenza 1 (PCR) Not Detected Parainfluenza 2 (PCR) Not Detected Parainfluenza 3 (PCR) Not Detected Parainfluenza 4 (PCR) Not Detected RSV (PCR) Not Detected Entero/Rhino (PCR) Not Detected Diagnostic Findings Abdomen/Pelvis CT 03/03/24 13:12 CT OF THE ABDOMEN AND PELVIS WITH CONTRAST CLINICAL HISTORY: syncope, nausea, chest pain, recent AAA surgery COMPARISON STUDY: Pelvis CT September 19, 2022. CT of the abdomen and pelvis August 30, 2022. TECHNIQUE: Following IV administration of 119 mL of Optiray, axial images of the abdomen and pelvis were obtained from the lung bases to the proximal femurs. Images were reviewed in the axial, sagittal, and coronal planes. IV contrast was administered without complication. Automated exposure control was utilized for the study. A dose lowering technique was utilized adhering to the principles of ALARA. FINDINGS: No pneumatosis, free air or portal venous gas is present. Liver, spleen, adrenal glands and pancreas are unremarkable. There is no biliary or pancreatic ductal dilatation. A 4.7 cm water attenuation left renal lesion represents a cyst. A hypodense 1.7 cm focus within the midpole the right kidney on image 179 of 393 is new since prior exam. This is indeterminate. Note is also made of a 1.5 cm hypodense focus within the midpole of the left kidney There is no hydronephrosis. The prostate is surgically absent. There is no lymphadenopathy. There are no fluid collections. There is no evidence for a bowel obstruction. No acute fractures within the lumbar spine, pelvis or hips are identified. IMPRESSION: 1. No bowel obstruction. No bowel wall thickening. 2. A few small hypodense foci within the bilateral kidneys. These are nonspecific. Small foci of pyelonephritis cannot be excluded. Small renal infarcts are also within the differential although these did not extend to the capsule. Renal protocol CT in 6 months to ensure resolution is recommended. 3. Status post prostatectomy. No pelvic fluid collections. No hydronephrosis. ACT 112: Negative or not required by law. Electronically signed by: Mark Haskins M.D. 03/03/2024 4:06 PM Chest X-Ray 03/03/24 13:12 EXAM: Radiograph of the Chest 1 View INDICATION: Chest pain. TECHNIQUE: Frontal view of the chest. COMPARISON: 01/27/2024 FINDINGS: Lungs and pleural spaces: Portions of the right lower lung are obscured. No consolidation or pulmonary edema. No pleural effusion or pneumothorax. Heart: Stable mild cardiomegaly and valve prosthesis. Stable atrial clip. Mediastinum: Normal contour. Bones/joints: No fracture, erosion or dislocation. Soft tissues: No abnormality noted. No radiopaque foreign body noted. Tubes, lines and devices: Battery generator right anterior chest wall. Leads extend into the neck. Appearance stable. Upper abdomen: No abnormality noted. IMPRESSION: No acute cardiopulmonary disease. ACT 112: Negative or not required by law. Electronically signed by Melissa Krishnan 03-03-2024 13:[address] 03/03/24 13:12 EXAM: CT Head Without Intravenous Contrast INDICATION: Syncope. TECHNIQUE: Axial computed tomography images of the head/brain without intravenous contrast. Sagittal and/or coronal reformats are provided. Sagittal and coronal reformatted images were created and reviewed. This CT exam was performed using one or more of the following dose reduction techniques: automated exposure control, adjustment of the mA and/or kV according to patient size, and/or use of iterative reconstruction technique. COMPARISON: No relevant prior studies available. FINDINGS: Limitations: None. Brain and extra-axial spaces: No abnormality noted. No hemorrhage. No significant white matter disease. No edema. No ventriculomegaly. Bones/joints: No acute changes. Soft tissues: No significant abnormality noted. Vasculature: No acute abnormality noted. Sinuses: There is mild chronic bilateral ethmoid and right sphenoid sinus thickening. Bilateral maxillary antrectomy defects patent. Mastoid air cells: No mastoid effusion. Orbits: No significant abnormality noted. IMPRESSION: No acute findings in the head/brain. ACT 112: Negative or not required by law. Electronically signed by Melissa Krishnan 03-03-2024 3:41 PM Head CTA 03/03/24 13:12 EXAM: CT Angiography Head and Neck With Intravenous Contrast INDICATION: Syncope and dizziness. TECHNIQUE: [place]/head and neck CT angiography protocol performed with intravenous contrast. Sagittal and coronal reformatted images were created and reviewed. This CT exam was performed using one or more of the following dose reduction techniques: automated exposure control, adjustment of the mA and/or kV according to patient size, and/or use of iterative reconstruction technique. MIP reconstructed images were created and reviewed. CONTRAST: 119ml of Optiray 320 was administered intravenously. COMPARISON: None. FINDINGS: HEAD: Right anterior cerebral artery: No abnormality noted. No occlusion or significant stenosis. Anterior communicating artery is present. No aneurysm. Right middle cerebral artery: No abnormality noted. No occlusion or significant stenosis. No aneurysm. Right posterior cerebral artery: No abnormality noted. No occlusion or significant stenosis. No aneurysm. Right intracranial internal carotid artery: No abnormality noted. No significant stenosis. No dissection or occlusion. Right intracranial vertebral artery: No abnormality noted. No significant stenosis. No dissection or occlusion. Left anterior cerebral artery: No abnormality noted. No occlusion or significant stenosis. No aneurysm. Left middle cerebral artery: No abnormality noted. No occlusion or significant stenosis. No aneurysm. Left posterior cerebral artery: No abnormality noted. No occlusion or significant stenosis. No aneurysm. Left intracranial internal carotid artery: No abnormality noted. No significant stenosis. No dissection or occlusion. Left intracranial vertebral artery: No abnormality noted. No significant stenosis. No dissection or occlusion. Basilar artery: No abnormality noted. No occlusion or significant stenosis. No aneurysm. Other vasculature: Patent dural venous sinuses. No vascular malformation. Sinuses: There is minimal chronic mucosal thickening in the right sphenoid sinus. NECK: Right common carotid artery: No abnormality noted. No significant stenosis. No dissection or occlusion. Right extracranial internal carotid artery: Minimal mixed plaque at the bulb. No significant stenosis. No dissection or occlusion. Right external carotid artery: No abnormality noted. No occlusion. Right extracranial vertebral artery: No abnormality noted. No significant stenosis. No dissection or occlusion. Left common carotid artery: No abnormality noted. No significant stenosis. No dissection or occlusion. Left extracranial internal carotid artery: N minimal mixed plaque at the bulb noted. No significant stenosis. No dissection or occlusion. Left external carotid artery: No abnormality noted. No occlusion. Left extracranial vertebral artery: No abnormality noted. No significant stenosis. No dissection or occlusion. Lung apices: No significant abnormality noted. HEAD and NECK: Bones/joints: Multilevel posterior cervical fusion with grossly intact hardware. Soft tissues: No abnormality noted. Tubes, lines and devices: Intrathecal catheter extends in the cervical canal with the tip terminating adjacent to the left posterior C1 arch. CAROTID STENOSIS REFERENCE USING NASCET CRITERIA: % ICA stenosis = (1 - narrowest ICA diameter/diameter of distal cervical ICA) x 100. Mild - <50% stenosis. Moderate - 50-69% stenosis. Severe - 70-94% stenosis. Near occlusion - 95-99% stenosis. Occluded - 100% stenosis. IMPRESSION: No significant angiographic abnormality in the neck or brain. ACT 112: Negative or not required by law. Electronically signed by Melissa Krishnan 03-03-2024 3:45 PM Neck CTA 03/03/24 13:12 EXAM: CT Angiography Head and Neck With Intravenous Contrast INDICATION: Syncope and dizziness. TECHNIQUE: [place]/head and neck CT angiography protocol performed with intravenous contrast. Sagittal and coronal reformatted images were created and reviewed. This CT exam was performed using one or more of the following dose reduction techniques: automated exposure control, adjustment of the mA and/or kV according to patient size, and/or use of iterative reconstruction technique. MIP reconstructed images were created and reviewed. CONTRAST: 119ml of Optiray 320 was administered intravenously. COMPARISON: None. FINDINGS: HEAD: Right anterior cerebral artery: No abnormality noted. No occlusion or significant stenosis. Anterior communicating artery is present. No aneurysm. Right middle cerebral artery: No abnormality noted. No occlusion or significant stenosis. No aneurysm. Right posterior cerebral artery: No abnormality noted. No occlusion or significant stenosis. No aneurysm. Right intracranial internal carotid artery: No abnormality noted. No significant stenosis. No dissection or occlusion. Right intracranial vertebral artery: No abnormality noted. No significant stenosis. No dissection or occlusion. Left anterior cerebral artery: No abnormality noted. No occlusion or significant stenosis. No aneurysm. Left middle cerebral artery: No abnormality noted. No occlusion or significant stenosis. No aneurysm. Left posterior cerebral artery: No abnormality noted. No occlusion or significant stenosis. No aneurysm. Left intracranial internal carotid artery: No abnormality noted. No significant stenosis. No dissection or occlusion. Left intracranial vertebral artery: No abnormality noted. No significant stenosis. No dissection or occlusion. Basilar artery: No abnormality noted. No occlusion or significant stenosis. No aneurysm. Other vasculature: Patent dural venous sinuses. No vascular malformation. Sinuses: There is minimal chronic mucosal thickening in the right sphenoid sinus. NECK: Right common carotid artery: No abnormality noted. No significant stenosis. No dissection or occlusion. Right extracranial internal carotid artery: Minimal mixed plaque at the bulb. No significant stenosis. No dissection or occlusion. Right external carotid artery: No abnormality noted. No occlusion. Right extracranial vertebral artery: No abnormality noted. No significant stenosis. No dissection or occlusion. Left common carotid artery: No abnormality noted. No significant stenosis. No dissection or occlusion. Left extracranial internal carotid artery: N minimal mixed plaque at the bulb noted. No significant stenosis. No dissection or occlusion. Left external carotid artery: No abnormality noted. No occlusion. Left extracranial vertebral artery: No abnormality noted. No significant stenosis. No dissection or occlusion. Lung apices: No significant abnormality noted. HEAD and NECK: Bones/joints: Multilevel posterior cervical fusion with grossly intact hardware. Soft tissues: No abnormality noted. Tubes, lines and devices: Intrathecal catheter extends in the cervical canal with the tip terminating adjacent to the left posterior C1 arch. CAROTID STENOSIS REFERENCE USING NASCET CRITERIA: % ICA stenosis = (1 - narrowest ICA diameter/diameter of distal cervical ICA) x 100. Mild - <50% stenosis. Moderate - 50-69% stenosis. Severe - 70-94% stenosis. Near occlusion - 95-99% stenosis. Occluded - 100% stenosis. IMPRESSION: No significant angiographic abnormality in the neck or brain. ACT 112: Negative or not required by law. Electronically signed by Melissa Krishnan 03-03-2024 3:45 PM Chest CTA 03/03/24 13:13 CT ANGIOGRAPHY OF THE CHEST, PULMONARY EMBOLUS PROTOCOL CLINICAL HISTORY: Chest Pain, eval for PE COMPARISON STUDY: Chest CT November 23, 2023. Chest radiograph performed earlier today. TECHNIQUE: Following IV administration of 119 mL of Optiray, helical axial images of the chest were obtained utilizing the pulmonary embolus protocol. Maximal intensity projections and sagittal and coronal reformats were viewed on an independent 3D workstation. IV contrast was administered without complication. Automated exposure control was utilized for the study. A dose lowering technique was utilized adhering to the principles of ALARA. CT DOSE: 3170.61 mGy.cm FINDINGS: Status post median sternotomy. Lucency within the sternotomy site is slightly more conspicuous than on CT of November 23, 2023. No associated fluid collections are present. There is no evidence for thoracic aortic dissection. Aortic valve replacement is in place. The heart is mildly enlarged. There is no pericardial effusion. There is extensive coronary artery calcification. No pulmonary emboli are identified. There is no pneumothorax or pleural effusion. There is no consolidation to suggest pneumonia. There are no suspicious pulmonary nodules. No enlarged axillary, mediastinal or hilar lymph nodes are present. IMPRESSION: 1. No pulmonary emboli identified. 2. Status post median sternotomy and aortic valve replacement. No thoracic aortic dissection. 3. Increased lucency within the median sternotomy. This may be due to interval healing although continued imaging follow-up is recommended to exclude less likely possibility of dehiscence. 4. No consolidation to suggest pneumonia. 5. Mild cardiomegaly. Extensive coronary artery calcification. ACT 112: Negative or not required by law. Electronically signed by: Mark Haskins M.D. 03/03/2024 4:00 PM Code Status & VTE Plan Code Status Full Supervising Physician Co-Signing Physician Notes Chart reviewed, patient seen and examined with Vaibhav Lange PA-C and I agree with the assessment and plan as above except as otherwise noted Labs and images reviewed Shaggy is a 69-year-old male with a past medical history of CAD, A-fib, AVR, B PH with LUTS, GERD, type II DM, hyperlipidemia, hypertension, prostate cancer who presented with dizziness/vertigo/nausea/vomiting/anorexia for the last 1 to 2 days CTAchest: No PE. Increased lucency at the median sternotomy, likely due to interval healing however will require repeat imaging to exclude dehiscence. No evidence of pneumonia. CTAhead/neck: No significant abnormality CThead: No acute intracranial findings CTA/P: Nonspecific foci within the bilateral kidneys, pyelonephritis is not excluded. Small renal infarct within differential although less likely. Repeat renal protocol in 6 months is recommended. S/p prostatectomy. No bowel obstruction Chest x-ray: No acute finding Creatinine is stable and at baseline, 0.77 on admission. No leukocytosis. ESR is not elevated. Minimal elevation of troponin at 24.6/25. CRP is normal. TSH is normal. UA is not infected appearing. Bio fire is negative. Suspected BPPV 2 days of symptoms. Worsened when standing from toileting. Patient went to stand up today felt dizzy and fell forward, and continued to feel dizzy afterwards. Nauseous and vomiting shortly after Suspect BPPV. [place] was performed bilaterally at the bedside, somewhat limited neck extension due to underlying fusion however with head support was able to safely extend to at least 15 degrees. Minimal symptoms on right sided [place], left-sided [place] with rotary nystagmus induced for several beats and with severe precipitation of spinning vertigo, nausea, and balance instability on attempting to stand which passed after approximately 15 to 30 seconds once back in a sitting position and immobile. Strongly suspect BPPV however patient is extremely symptomatic and at high risk of falls due to this. PT/OT consulted for Mickey maneuver, and will treat with symptomatic management with meclizine overnight. Could try Valium is severely symptomatic and not responsive to Mickey Do not believe his symptoms are orthostatic as they were induced by [place], additionally orthostatics were with mildly hypertensive response and no blood pressure drop was observed between sitting/lying and standing. DDx does include labyrinthitis again less likely in the setting of [place]- Hallpike, and CVA. Given test above suspect BPPV and will defer MRI for now, especially given he has a MRI conditional spinal stimulator. He has no other focal neurologic deficits and while at rest and is not moving his head does not show any dysmetria. CAD/AVR History of single-vessel CABG SOLITARIO to LAD 10/2023, ascending aortic aneurysm repair at [facility], AVR Pulm and minimally elevated and stable. No acute territorial ST/T wave changes on EKG, sinus. Do not suspect ACS. Suspect minimal demand ischemia/troponin leak. Follow clinically overnight Patient CT imaging does show some lucency had a sternal healing site. This should be reevaluated for healing versus dehiscence. May forward results to his [facility] team. Agree with other management including chronic medical issues as noted above PG Care Time/CCT Total # of Minutes Spent Total Time Spent with Patient: Total time spent is greater than 50% in coordination of care (as documented) at patient's floor/unit and/or counseling patient: Coding Level of Care Code 50839 INT INP/OBS CARE 2/55MIN Diagnoses Vertigo R42 CAD (coronary artery disease) I25.10 Type II diabetes mellitus E11.9 Time Spent (min) 65
--- NOTE | 2024-03-03 18:39 | Electrocardiogram Report ---
Test Reason : Blood Pressure : */* mmHG Vent. Rate : 65 BPM Atrial Rate : 65 BPM P-R Int : 182 ms QRS Dur : 88 ms QT Int : 434 ms P-R-T Axes : -42 29 62 degrees QTcB Int : 451 ms SInus rhythm with premature atrial contractions Low voltage QRS Abnormal ECG When compared with ECG of 27-Jan-2024 09:28, Ectopic atrial rhythm has replaced Sinus rhythm Confirmed by Bola Alvarez ([id number]) on 03/03/2024 6:38:49 PM Referred By: Rodney Li Confirmed By: Bola Alvarez
[2024-03-03] MEDS ORDERED: traMADol HCL 50 MG TABLET PO PRN (19:51)
[2024-03-03] MEDS ORDERED: ONDANSETRON INJ 2 MG/ML 2 ML VIAL IV PRN (19:51)
[2024-03-03] MEDS: METOPROLOL SUCC 25MG EXT REL TAB PO SCH (20:43)
[2024-03-03] MEDS: ENOXAPARIN INJ 40 MG/0.4 ML SYR SQ SCH (20:43)
[2024-03-03] MEDS: COLCHICINE 0.6 MG TAB PO SCH (20:43)
[2024-03-03] MEDS: LOSARTAN POTASSIUM 25 MG TAB PO SCH (20:43)
--- OUTSIDE RECORDS SUMMARY | 2024-03-04 04:52 | External Medical Summary | Continuity of Care Document ---
Author Name Unknown Organization [place] [id number] Address [address] [place] [phone] Care Team Providers Care [employer] Name Role Phone Rodney Li Primary Care Physician [phone] [id number] Date(s): 02/28/24 - 02/28/24 [facility] [address] [place] [id number] [facility] [address] [place] [id number] Encounter Diagnosis Tinea unguium(Discharge Diagnosis) - 02/28/24 Type 2 diabetes mellitus(Discharge Diagnosis) - 02/28/24 Discharge Disposition: Home or Self Care Attending Physician: MALU Marte Christina L Allergies, Adverse Reactions, Alerts Substance Criticality Severity Reaction Reaction Severity Status tetracycline unknown Active sulfa drugs unknown Active Keflex hives Active Assessment and Plan Extracted from: Title:Follow Up Visit Author:MALU Marte, Felicia Kenyon Date:02/28/24 1.Tinea unguium -Patient unable to provide self care to toenails due to DM - verbal consent obtained for debridement -Recommend toenail debridement -Patient had toenails of bilateral digits 1-5 debrided using nail nippers to tolerance, no bleeding noted -Patient instructed to use emery board to nails once per week -Patient had no ingrown toenails or infection noted -Patient is to follow up in6 months for treatment if needed in the future 2.Type 2 diabetes mellitus Medications amoxicillin 500 mg oral capsule TAKE 4 CAPSULES BY MOUTH 1 HOUR BEFORE DENTAL WORK Start Date: 02/28/24 Status: Ordered Arcalyst 220 mg subcutaneous injection Start: 02/28/24 1:25:00 PM EST Start Date: 02/28/24 Status: Ordered atorvastatin 80 mg oral tablet TAKE 1 TABLET BY MOUTH EVERY DAY Start Date: 02/28/24 Status: Ordered colchicine 0.6 mg oral tablet TAKE ONE TABLET BY MOUTH TWICE DAILY FOR PERICARDITIS Start Date: 02/28/24 Status: Ordered losartan 25 mg oral tablet TAKE 1 TABLET BY MOUTH EVERY DAY IN THE MORNING Start Date: 09/04/23 Status: Ordered Metoprolol Succinate ER 25 mg oral tablet, extended release Start: 02/28/24 1:24:00 PM EST, 1 tab, PO, Daily Start Date: 02/28/24 Status: Ordered Mounjaro 5 mg/0.5 mL subcutaneous solution PT WORKING ON GETTING A COUPON - INJECT 0.5 ML SUBCUTANEOUSLY WEEKLY Start Date: 05/09/22 Status: Ordered omeprazole 40 mg oral delayed release capsule TAKE 1 CAPSULE BY MOUTH EVERY DAY Start Date: 02/28/24 Status: Ordered simvastatin 40 mg oral tablet Start: 04/04/15 8:07:00 AM EST, 1 tab, PO, qhs Start Date: 04/04/15 Status: Ordered traMADol 50 mg oral tablet TAKE 1 TABLET EVERY 8 HOURS NEEDED FOR PAIN Start Date: 02/28/24 Status: Ordered Mental Status 02/28/24 Barriers to Learning one year None evide nt Mandatory Health Literacy Documentation Yes Health Literacy Communication Barriers N ever Primary Language Greenlandic Problem List Condition Confirmation Course Effective Dates Status Health St atus Informant Labral tear of left hip joint Confirmed Active Right Achilles tendinitis 1 Confirmed Active BP (high blood pressure) Confirmed Active Left carpal tunnel syndrome Confirmed Active Cyst of skin Confirmed Active Family history of skin cancer 2 Confirmed Active Left hip pain Confirmed Active Elevated cholesterol Confirmed Active Hyc-oactxpw-mvzqbrk nt diabetes mellitus Confirmed Active Tinea unguium Confirmed Active Skin lesion Confirmed Active Strain of iliopsoas muscle Confirmed Active Tobacco user Confirmed Active Trigger thumb, left thumb Confirmed Active Trigger thumb, right thumb Confirmed Active Trigger ring finger of left hand Confirmed Active Type 2 diabetes mellitus Confirmed Active 1right 2father had skin ca? Diagnosis Diagnosis Type Effective Dates Health Status inical Service Informant Tinea unguium Discharge Diagnosis 02/28/24 Non-Specified Type 2 diabetes mellitus Discharge Diagnosis 02/28/24 Non-Specified Procedures Procedure Date Related Diagnosis Body Site Status Carpal tunnel release 07/04/21 Com pleted Release of trigger finger 07/04/21 Completed Excision of cyst 12/13/15 Complete d Surgery 1 01/2015 Completed Surgery 2 12/2014 Completed 1spinal cord stimulator 2trial for spinal cord stimulator Social History Social History Type Response Smoking Status Never smoked cigaret erika Sex Male Sex Representation Male (finding) Ortho Outpt Note * MALU Marte, Capri Kenyon: PERFORM Event Display: Ortho Outpt Note Authored Date: [id number] Chief Complaint nail care Primary Care Provider MD Li Jeffrey W Subjective Patient is a very pleasant 69-year-old male presenting today for diabetic footcare last seen in [facility] this year,since I last saw him he was diagnosed with prostate cancer and an aneurysm. -Feet remain stable patient had open heart surgery since I last saw him for his aneurysmdoing better Review of Systems Type 2 diabetes Objective Physical Exam Problem focused bilateral feet: Dorsalis pedis pulses palpable2 out of 4,posterior tibial pulses palpable 1 out of 4 capillary refill time is less than 3 secondsskin turgor is good to all digits of both feet pedal hair is noted to be present. Monofilament test intact to distal extremities, light touch intact to distal extremities,proprioception intact to distal extremities, Dry skin at plantar heel stable Digits 1 through 5of both feet with discoloration, subungual debris,dystrophy, thickening greater than 1 mm, pain recommend debridement History of back surgery with stimulator placed unable to bend over to provide self-care Interspaces are intact without maceration or breakdown. There are no open wounds present on his feet. Assessment/Plan 1.Tinea unguium -Patient unable to provide self care to toenails due to DM - verbal consent obtained for debridement -Recommend toenail debridement -Patient had toenails of bilateral digits 1-5 debrided using nail nippers to tolerance, no bleedingnoted -Patient instructed to use emery board to nails once per week -Patient had no ingrown toenails or infection noted -Patient is to follow up in6 months for treatment if needed in the future 2.Type 2 diabetes mellitus Electronic Signature on File Electronically Reviewed/Signed by: Capri Marte DPM Author Signature Dt/Tm:02/28/2024 01:43 PM Division of Sports Medicine CLR Patient Care team information Care Team Personnel Name: MD Li Jeffrey W Position: Referring DIRECT Member Role: Primary Care Provider Address: [facility] [address] [facility] [address] [place] [address] Name: MALU Marte, Capri Kenyon Position: Physician - Podiatry Member Role: Lifetime Relationship Address: [address] Care Team Related Persons Name: ABDIFATAH SUE Name: ABDIFATAH SUE
[2024-03-04] MEDS: ATORVASTATIN 40 MG TAB PO SCH (08:20)
[2024-03-04] MEDS: ASPIRIN 81 MG ECTAB PO SCH (08:20)
[2024-03-04] MEDS: PANTOprazole 40 MG TAB PO SCH (08:21)
[2024-03-04 08:42] LABS: Hematocrit (blood only) 38.2 % (42.0-52.0); Hemoglobin 12.4 g/dl (14.0-18.0); Mean Corpuscular Hemoglobin 27.3 pg (25.0-34.0); Mean Corpuscular Hgb Conc 32.5 g/dL (32.0-36.0); Mean Corpuscular Volume 84.1 fL (80.0-100.0); Mean Platelet Volume 10.7 fL (9.4-12.4); Platelet Count 192 K/uL (130-400); RDW Coefficient of Variation 15.3 % (11.5-14.5); RDW Standard Deviation 46.9 fL (36.4-46.3); Red Blood Count 4.54 M/uL (4.70-6.10); White Blood Count 6.02 K/ul (4.8-10.8)
[2024-03-04] MEDS ORDERED: methylPREDNISolone 10 mg/mL (For Ped Dose < 7mg) IV SCH (08:45)
[2024-03-04] MEDS: MECLIZINE 12.5 MG TAB PO SCH (10:08)
[2024-03-04] MEDS: methylPREDNISolone 40 MG in SYRINGE 0 ML IV SCH (10:38)
--- NOTE | 2024-03-04 12:19 | Hospitalist Progress Note ---
Date of Service March 04, 2024 Assessment & Plan (1) Vertigo: Plan: Appears to be due to acute labyrinthitis. No evidence of acute CVA. Now on scheduled dosing of meclizine and Solu-Medrol. Multiple scans negative for critical vascular disease or ischemic CVA. (2) CAD (coronary artery disease): Plan: Currently stable. 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 He has had previous coronary artery bypass grafting in October of this year at the [facility]. Continue current medical management. (3) Type II diabetes mellitus: Plan: ADA diet. Sliding scale coverage if needed. He takes tirzepatide weekly as an outpatient . Most recent A1C 11/2023 @ 5.8% Plan Hopeful discharge to home tomorrowMarch 05 Admission and Anticipated Discharge Date Admission Date: March 03, 2024 Subjective Alert and oriented. No evidence of CVA or other brain pathology on multiple scans. This appears to be acute labyrinthitis causing the vertigo. He has been started on scheduled dosing of meclizine and intravenous methylprednisolone. Hopefully he can go home tomorrow, March 05 Review of Systems 2 Review of Systems: Constitutionalno fever or chills ENTno blurred vision, no double vision, no epistaxis, no sore throat Respiratoryno cough, no wheezing, no shortness of breath Cardiacno palpitations, no chest pain, no syncope Khushboo nausea, vomiting, diarrhea, melena, hematochezia GUno urinary retention, no urinary incontinence, no dysuria, no hematuria Musculoskeletalno joint pain, no muscle tenderness Skinno bruising, no rashes, no pruritus Neurono isolated weakness, no paresthesia. Vertigo Psychno depression, no anxiety Physical Exam 2 Physical Exam: General-alert and oriented x3, no fever, no chills HEENT-head atraumatic and normocephalic, pupils equal and reactive to light, extraocular muscles intact Neck-no lymphadenopathy or thyromegaly, trachea midline Chest-clear to auscultation. No rales, wheezing or rhonchi Cardiac-regular rate and rhythm, normal S1 and S2 Abdomen-normal bowel sounds, no hepatosplenomegaly Extremities-no cyanosis, clubbing, or edema Neuro-cranial nerves II through XII intact, motor and sensory function within normal limits, strength symmetrical, no focal deficits. Vertigo Psych-normal affect, normal mood Results & Data Results & Data Vital Signs (Past 12 Hours) Vital Signs Temp Pulse Resp BP Pulse Ox O2 Del Method 03/04/24 07:21 36.6 C 66 16 129/79 96 Room Air Laboratory Results 03/04/24 07:54 03/03/24 13:10 PG Care Time/CCT Total # of Minutes Spent Total Time Spent with Patient: Total time spent is greater than 50% in coordination of care (as documented) at patient's floor/unit and/or counseling patient: Coding Level of Care Code 29855 SUB INP/OBS CARE 3/50MIN Diagnoses Vertigo R42 CAD (coronary artery disease) I25.10 Type II diabetes mellitus E11.9
[2024-03-04 14:33] VITALS: O2SAT 95
[2024-03-05 07:21] VITALS: BP 111/63; PULSE 76; RESP 16; TEMP 98.1
--- NOTE | 2024-03-05 11:48 | Discharge Summary ---
Discharge Summary Date of Service March 05, 2024 Principal Dx & Hospital Course #1 = Principal Diagnosis (1) Vertigo: Appears to be due to acute labyrinthitis. No evidence of acute CVA. He will continue meclizine at discharge until vertigo has completely resolved. Solu- Medrol switched to prednisone 10 mg in a tapering dose fashion at discharge. Multiple scans negative for critical vascular disease or ischemic CVA. (2) CAD (coronary artery disease): Currently stable. 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 He has had previous coronary artery bypass grafting in October of this year at the [facility]. Continue current medical management. (3) Type II diabetes mellitus: ADA diet. Sliding scale coverage if needed. He takes tirzepatide weekly as an outpatient . Most recent A1C 11/2023 @ 5.8% Plan Home today, March 05 Admission HPI Per Admitting Provider 69-year-old male presenting for ongoing vertigo since Saturday. ED course: RBC 4.58, H&H 12.8/38.4, RDW 47.2; PT/INR WNL; CMP WNL; troponin 24.6, repeat 25.1; UA without signs of infection; BioFire negative.; CTAP no obstruction or wall thickening, few hypodense foci within the bilateral kidneys, status post prostatectomy; head/neck CT without acute findings; head CTA without angiographic abnormalities in neck or brain; chest CTA status post median sternotomy and aortic valve replacement, increased lucency within the median sternotomy (interval healing or dehiscence), no pneumonia, mild cardiomegaly, coronary artery calcification.; CXR without acute cardiopulmonary disease.; EKG rate around 65, possible ectopic atrial rhythm. Patient is a 69-year-old male PMHx BPPV, CAD, A-fib, pleuropericarditis, GERD, T2DM, and HTN presenting for worsening vertigo since Saturday. Initial episode occurred after using the restroom. States that he had episode of nausea/vomiting with associated vertigo starting on Saturday. States that has gotten to the point where he is unable to move his head at all because it causes severe symptoms. States that he feels as though the room is spinning around him. Notes that the movements really only occur whenever he rolls over in bed or changes his head position. Not having associated headaches or tinnitus. Denies pain, shortness of breath, cough, abdominal pain, D/C, or numbness tingling. States that this is never happened before, however history does note history of BPPV. Please see Dr. Tam's attestation for adjustments/additions to treatment plan. Discharge Exam General-alert and oriented x3, no fever, no chills HEENT-head atraumatic and normocephalic, pupils equal and reactive to light, extraocular muscles intact Neck-no lymphadenopathy or thyromegaly, trachea midline Chest-clear to auscultation. No rales, wheezing or rhonchi Cardiac-regular rate and rhythm, normal S1 and S2 Abdomen-normal bowel sounds, no hepatosplenomegaly Extremities-no cyanosis, clubbing, or edema Neuro-cranial nerves II through XII intact, motor and sensory function within normal limits, strength symmetrical, no focal deficits. Vertigo Psych-normal affect, normal mood Discharge Plan Discharge Items Patient Disposition: Home - Self-Care Reason For Visit: VERTIGO Discharge Diagnosis: Suspected acute labyrinthitis with vertigo Condition on Discharge: Good Activity: Resume your previous activity Non-emergency contact: Primary Care Provider Call non-emergency contact if: your symptoms worsen Follow-up/Referrals: ProRodney MD [Primary Care Provider] - Diet: Carb Consistent or DM2 and Heart Healthy Addtl Attending Provider Instructions: Take meclizine 3 times daily until vertigo has completely resolved. Take prednisone in a tapering dose fashion as directed Pending Studies at Discharge: No Stand-Alone Forms: My [facility] [employer], Smoking Cessation Medications and DC Order Prescriptions: New prednisone 10 mg Tablet See Rx Instructions .ROUTE .COMPLEX Qty: 12 0RF Rx Instructions: 10 mg orally 3 times a day for 2 days, then 10 mg twice a day for 2 days, then 10 mg once a day for 2 days, then stop meclizine 12.5 mg Tablet 12.5 mg PO TID Qty: 15 0RF Continued tirzepatide 12.5 mg/0.5 mL pen injector 12.5 mg subcut .Weekly Qty: 6 3RF Rx Instructions: fridays amoxicillin 500 mg capsule 2,000 mg PO ONCE Qty: 4 2RF Rx Instructions: Take 4 capsules 1 hour before dental work tramadol 50 mg tablet 50 mg PO Q8H PRN (Reason: pain) Qty: 60 0RF metoprolol succinate 25 mg tablet extended release 24 hr 25 mg PO BID Rx Instructions: filled 11/20/23 colchicine 0.6 mg tablet 0.6 mg PO BID Qty: 180 3RF atorvastatin 80 mg tablet 80 mg PO DAILY Qty: 90 3RF Arcalyst 220 mg recon soln 220 mg subcut Q7D omeprazole 40 mg capsule,delayed release(DR/EC) 40 mg PO DAILY aspirin 81 mg tablet,delayed release (DR/EC) 81 mg PO QAM Rx Instructions: otc sildenafil (pulm.hypertension) 20 mg tablet 40 mg PO UD PRN (Reason: sexual activity) Rx Instructions: no fill history losartan 25 mg tablet 25 mg PO UD Rx Instructions: per pt medication is currently on hold. 25 mg po qam Discharge Orders: Discharge Order (Routine); Ordered 03/05/24 Ordered By: Jose Guerin Admission Data Admit Date/Time: 03/03/24 17:52 Attending Provider: Jose Geurin Admit Provider: Howard Tam Primary Care Provider: Rodney Li Other Providers: Howard Tam Hospital Stay Data Consultations 03/03/24 17:10 ED Decision to Admit Stat Diagnostic Imagining Performed 03/03/24 13:12 CT abd pelvis IV con only Stat CT head/brain wo con Stat CTA head w con [CT angio head w con] Stat CTA neck with con [CT angio neck with con] Stat 03/03/24 13:13 CT angio chest PE protocol Stat Pending Results Patient Have Any Pending Studies at Discharge: No Discharge Instructions Given to Patient (Per Discharging Provider) Take meclizine 3 times daily until vertigo has completely resolved. Take prednisone in a tapering dose fashion as directed Total Time Total Time Spent Total Time Spent (In Minutes): 45 minutes Coding Level of Care Code 56861 INP/OBS DISCH >30 MIN Diagnoses Vertigo R42 CAD (coronary artery disease) I25.10 Type II diabetes mellitus E11.9
[2024-03-05] MEDS: predniSONE 10 MG TABLET PO SCH (12:10)
== END 2024-03-05 13:12 | disposition home or self-care (01) ==
LOC: ED 12:29 → 3N 12:29 → SUATTDRO 17:52 → 3N 18:34